=== PATIENT | female | born 1945 | race American Indian/Alaskan Native ===

== ENCOUNTER 2017-12-18 16:34 | Emergency (ER) | payer MEDICAID, OTHER ==
[2017-12-18 16:50] VITALS: RESP 20; O2SAT 100
[2017-12-18 17:23] LABS: URINE BACTERIA RARE (<OCC); URINE BILIRUBIN NEGATIVE (NEGATIVE); URINE BLOOD 2+ (NEGATIVE); URINE CLARITY Hazy (Clear); URINE COLOR Yellow (YELLOW); URINE GLUCOSE (UA) 2+ mg/dL (Normal); URINE LEUKOCYTE ESTERASE 3+ Leu/uL (Negative); URINE PROTEIN 2+ mg/dL (NEGATIVE); URINE UROBILINOGEN NORMAL mg/dL (0.2-1.0)
--- NOTE | 2017-12-18 17:40 | C.PDOC ---
History Of Present Illness 72 y/o female presents to ED for evaluation of UTI symptoms for 2 weeks. Patient admits to being seen at [facility] and started on Macrobid 1 week ago with no improvement. At ED patient complaints of urinary frequency and urinary discomfort. Otherwise, pt denies fever, chills, headache, dizziness, CP, SOB, dyspnea, palpitation, abd. pain, V/D, back pain, hematuria, vaginal discharge or any other complaints at this time. Ambulate to Ed for evaluation, not in any apparent distress. Time Seen by Provider: 12/18/17 16:55 Chief Complaint (Nursing): Female Genitourinary History Per: Patient History/Exam Limitations: no limitations Onset/Duration Of Symptoms: Days Current Symptoms Are (Timing): Still Present Associated Symptoms: Urinary Symptoms Past Medical History Reviewed: Historical Data, Nursing Documentation, Vital Signs Vital Signs: Last Vital Signs Temp 98.5 F 12/18/17 17:50 Pulse 88 12/18/17 17:50 Resp 20 12/18/17 17:50 BP 140/81 12/18/17 17:50 Pulse Ox 100 12/18/17 17:52 - Medical History PMH: HTN Surgical History: No Surg Hx Family History: States: No Known Family Hx - Social History Hx Alcohol Use: No Hx Substance Use: No - Immunization History Hx Tetanus Toxoid Vaccination: No Hx Influenza Vaccination: No Hx Pneumococcal Vaccination: No Review Of Systems Constitutional: Negative for: Fever, Chills Genitourinary: Positive for: Dysuria, Frequency. Negative for: Hematuria, Vaginal Discharge Musculoskeletal: Negative for: Back Pain Skin: Negative for: Rash Physical Exam - Physical Exam Appears: Well, Non-toxic, No Acute Distress Skin: Normal Color, Warm, Dry, No Rash Head: Normacephalic Eye(s): bilateral: PERRL Nose: No Flaring, No Discharge Oral Mucosa: Moist, No Drooling Throat: No Erythema, No Drooling Neck: Trachea Midline, Supple Cardiovascular: Rhythm Regular, No Murmur, No JVD Respiratory: No Decreased Breath Sounds, No Accessory Muscle Use, No Stridor, No Wheezing Gastrointestinal/Abdominal: Soft, Tenderness (mild suprapubic tenderness), No Distention, No Guarding, No Rebound Back: No CVA Tenderness Extremity: Normal ROM, No Pedal Edema, No Deformity, No Swelling Neurological/Psych: Oriented x3, Normal Speech, Normal Motor, Normal Sensation, Normal Reflexes ED Course And Treatment - Laboratory Results Lab Interpretation: No Changes Compared To Prior Results O2 Sat by Pulse Oximetry: 100 (RA) Pulse Ox Interpretation: Normal Progress Note: On re-eval, pt is afebrile, hemodynamicaly stable. Non-toxic. Tolerate Po well in ED. ENT: no acute findings. Neck: Supple, (-) JVD, (-) carotid bruits B/L. Lungs: CTA B/L, BS equal B/L. CVS: (+)S1S2, reg. Abd: soft, NT/ND, (-) guarding, (-) rebound. back: (-) CVA tenderness. UA results review and c/w UTI. Ucx- pending. Pt advised on course of ds, will switch abx now. ref. to f/u with PMD in 2-3 days for re-eval. return if any new changes. Disposition Counseled Patient/Family Regarding: Studies Performed, Diagnosis, Need For Followup, Rx Given - Disposition Referrals: [facility] [Outside] Disposition: HOME/ ROUTINE Disposition Time: 17:36 Condition: STABLE Additional Instructions: Encourage fluids Change antibiotic, stop Macrobid and switch to Ciprofloxacin Return to ED in 2-3 days if no improvement , urine culture will be available for review. return to ED at any time if any worsening or new changes. 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 - Scribe Statement The provider has reviewed the documentation as recorded by the Lisa Jamison All medical record entries made by the Lisa were at my direction and personally dictated by me. I have reviewed the chart and agree that the record accurately reflects my personal performance of the history, physical exam, medical decision making, and the department course for this patient. I have also personally directed, reviewed, and agree with the discharge instructions and disposition.
[2017-12-18 17:51] VITALS: BP 140/81; PULSE 88; TEMP 98.5
== END 2017-12-18 17:51 | disposition home or self-care (01) ==
LOC: C.ER 16:34
DX: N39.0 Urinary tract infection, site not specified (principal); I10 Essential (primary) hypertension

== ENCOUNTER 2018-02-27 08:37 | Inpatient (IN) | payer MEDICARE, OTHER ==
[2018-02-27 08:41] VITALS: BMI 29.2
[2018-02-27] MEDS ORDERED: Vancomycin 1 GM 1 GM/250 ML BAG IV STA (09:28)
--- NOTE | 2018-02-27 10:09 | RAD ---
Date of service: 02/27/2018 PROCEDURE: CHEST RADIOGRAPH, 1 VIEW HISTORY: left leg swelling/pain COMPARISON: None available. FINDINGS: LUNGS: The lungs are well inflated and clear. PLEURA: No pneumothorax or pleural fluid seen. CARDIOVASCULAR: Normal. OSSEOUS STRUCTURES: No significant abnormalities. VISUALIZED UPPER ABDOMEN: Normal. OTHER FINDINGS: None. IMPRESSION: No active pulmonary disease.
[2018-02-27 10:11] LABS: BASO % 0.6 % (0.0-2.0); EOS % 0.9 % (0.0-4.0); HEMOGLOBIN 9.5 g/dL (11.0-16.0); LYMPH # 0.9 K/uL (1.0-4.3); LYMPH % 16.3 % (20.0-40.0); MEAN CORPUSCULAR HEMOGLOBIN 26.1 pg (27.0-31.0); MEAN CORPUSCULAR HGB CONC 33.1 g/dL (33.0-37.0); MEAN PLATELET VOLUME 7.8 fL (7.2-11.7); MONO # 0.7 K/uL (0.0-0.8); MONO % 12.1 % (0.0-10.0); NEUT # 3.8 K/uL (1.8-7.0); NEUT % 70.1 % (50.0-75.0); RBC 3.63 Mil/uL (3.80-5.20); RED CELL DISTRIBUTION WIDTH 15.5 % (11.5-14.5); WHITE BLOOD COUNT 5.5 K/uL (4.8-10.8)
--- NOTE | 2018-02-27 10:13 | RAD ---
Date of service: 02/27/2018 PROCEDURE: Radiographs of the left tibia and fibula. HISTORY: left leg swelling/erythema COMPARISON: None available. TECHNIQUE: Frontal and lateral views obtained. FINDINGS: BONES: Bone alignment and mineralization are normal. There is no acute fracture or bone destruction. There is a prominent plantar calcaneal spur. JOINT SPACES: Unremarkable. OTHER FINDINGS: There is diffuse subcutaneous edema. IMPRESSION: No acute fracture or bone destruction. Diffuse subcutaneous edema.
[2018-02-27 10:18] LABS: INR 1.3; PROTHROMBIN TIME 13.7 SECONDS (9.7-12.2)
[2018-02-27 10:24] LABS: ALBUMIN 3.8 g/dL (3.5-5.0); ALT/SGPT 25 U/L (9-52); AST/SGOT 18 U/L (14-36); BLOOD UREA NITROGEN 8 mg/dL (7-17); CALCIUM 10.2 mg/dl (8.6-10.4); GFR AFRICAN-AMERICAN > 60; GFR NON-AFRICAN AMERICAN > 60
[2018-02-27] MEDS ORDERED: Vancomycin 1 gm/NS 200 ml 1 GM/200 ML BAG IVPB STA (10:27)
[2018-02-27 10:55] LABS: SQUAMOUS EPITHIAL < 1 /hpf (0-5); URINE BACTERIA RARE (<OCC); URINE BILIRUBIN NEGATIVE (NEGATIVE); URINE BLOOD NEGATIVE (NEGATIVE); URINE CLARITY Clear (Clear); URINE COLOR Yellow (YELLOW); URINE GLUCOSE (UA) NORMAL (Normal); URINE PROTEIN NEGATIVE (NEGATIVE); URINE UROBILINOGEN NORMAL mg/dL (0.2-1.0)
[2018-02-27 11:09] LABS: URINE LEUKOCYTE ESTERASE 1+ Leu/uL (Negative)
--- NOTE | 2018-02-27 12:14 | C.PDOC ---
History Of Present Illness 72yo female, comes to ER with complaints of pain and swelling to her left lower extremity x 2 days. She states she "hit" her leg several days ago and now developed several blisters on her posterior leg. She otherwise denies any fever , chills, chest pain or shortness of breath. Patient offers no additional complaints. Time Seen by Provider: 02/27/18 08:55 Chief Complaint (Nursing): Lower Extremity Problem/Injury History Per: Patient History/Exam Limitations: no limitations Onset/Duration Of Symptoms: Days Current Symptoms Are (Timing): Still Present Past Medical History Reviewed: Historical Data, Nursing Documentation, Vital Signs Vital Signs: Last Vital Signs Temp 99.0 F 02/27/18 12:47 Pulse 100 H 02/27/18 12:47 Resp 18 02/27/18 12:47 BP 138/81 02/27/18 12:47 Pulse Ox 100 02/27/18 12:47 - Medical History PMH: HTN Surgical History: No Surg Hx Family History: States: No Known Family Hx - Social History Hx Alcohol Use: No Hx Substance Use: No - Immunization History Hx Tetanus Toxoid Vaccination: No Hx Influenza Vaccination: No Hx Pneumococcal Vaccination: No Review Of Systems Except As Marked, All Systems Reviewed And Found Negative. Constitutional: Negative for: Fever, Chills Cardiovascular: Negative for: Chest Pain Respiratory: Negative for: Shortness of Breath Gastrointestinal: Negative for: Vomiting, Abdominal Pain Musculoskeletal: Positive for: Leg Pain (left leg with pain and swelling) Physical Exam - Physical Exam Appears: Non-toxic, Other (undomiciled) Skin: Warm, Dry Head: Atraumatic, Normacephalic Eye(s): bilateral: Normal Inspection, EOMI Neck: Normal ROM, Supple Chest: Symmetrical Cardiovascular: Rhythm Regular Respiratory: Normal Breath Sounds Gastrointestinal/Abdominal: Normal Exam, Soft, No Tenderness Back: Normal Inspection Extremity: Pedal Edema (left lower extremity), Calf Tenderness (left), Swelling (swelling, erythema and warmth noted to left lower extremities. ), Other ( multiple white bullae 3 cm in size noted to posterior left leg; no drainage noted. There is extensive callous on heels. ) Pulses: Left Dorsalis Pedis: Normal, Right Dorsalis Pedis: Normal Neurological/Psych: Oriented x3, Normal Speech, Normal Cognition, Normal Motor, Normal Sensation Gait: Steady ED Course And Treatment - Laboratory Results Result Diagrams: 02/27/18 10:05 02/27/18 10:05 O2 Sat by Pulse Oximetry: 100 (RA) Pulse Ox Interpretation: Normal Progress Note: Labs, US Duplex and XR left tib/fib ordered. US results reviewed , patient does not have a DVT in her left lower extremity. Patient started on IV antibiotics. Case discussed with Dr. Mahoney and patient to be admitted under his service. 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 - Scribe Statement The provider has reviewed the documentation as recorded by the Lisa Ramirez Provider Attestation: All medical record entries made by the Lisa were at my direction and personally dictated by me. I have reviewed the chart and agree that the record accurately reflects my personal performance of the history, physical exam, medical decision making, and the department course for this patient. I have also personally directed, reviewed, and agree with the discharge instructions and disposition. Decision To Admit - Pt Status Changed To: Hospital Disposition Of: Inpatient - Admit Certification Admit to Inpatient:: After my assessment, the patient will require hospitalization for at least two midnights. This is because of the severity of symptoms shown, intensity of services needed, and/or the medical risk in this patient being treated as an outpatient. - InPatient: Physician Admission Certification: I certify that this patient requires 2 or more midnights of care for the following reason:: Patient with leg cellulitis will need IV antibiotics and wound care for more than 2 days. - . Bed Request Type: Regular Admitting Physician: Piyush Mahoney Patient Diagnosis: Cellulitis of leg
--- NOTE | 2018-02-27 13:30 | VASCLAB ---
Date of service: 02/27/2018 PROCEDURE: Left Lower Extremity Venous Duplex Exam. HISTORY: Left leg swelling, Pain PRIORS: None. TECHNIQUE: Left common femoral, femoral, popliteal and posterior tibial, peroneal and great saphenous veins were evaluated. Flow was assessed with color Doppler, compressibility, assessment of phasic flow and augmentation response. Report prepared by [address]UN[address] FINDINGS: LEFT: 1. Common Femoral Vein: 1.1. Compressibility - Fully compressible: Thrombus - None : Flow - Phasic: Augmentation -Normal: Reflux - None. 2. Femoral Vein: 2.1. Compressibility - Fully compressible: Thrombus - None: Flow - Phasic: Augmentation -Normal: Reflux - None. 3. Popliteal Vein: 3.1. Compressibility - Fully compressible: Thrombus - None: Flow - Phasic: Augmentation -Normal: Reflux - None. 4. Posterior Tibial Vein: 4.1. Compressibility - Fully compressible: Thrombus - None: Flow - Phasic: Augmentation -Normal: Reflux - None. 5. Peroneal Vein: 5.1. Compressibility - Fully compressible: Thrombus - None: Flow - Phasic: Augmentation -Normal: Reflux - None. 6. Great Saphenous Vein: 6.1. Compressibility - Fully compressible: Thrombus - None: Flow - Phasic: Augmentation - Normal: Reflux - None. OTHER FINDINGS: A mass with minimal vascularity was seen in the left groin, measuring 1.96 x 3.72 c.m., possibly an enlarged lymph node. IMPRESSION: No evidence of deep or superficial vein thrombosis of the left lower extremity with excellent venous flow. Normal valve function noted of the left side. Normal venous flow noted in the right common femoral vein.
--- NOTE | 2018-02-27 13:56 | CP.PCM.HP ---
History of Present Illness - History of Present Illness History of Present Illness: Nya Mack is a 72 yo homeless female with a PMH of HTN who presents with a 2 day history of left leg swelling and new onset abscess today post trauma. The patient states that she lives in a homeless half-way and walks outside for msot of the day while carrying all of her belongings. She believes she hit her leg while pushing her cart, but she cannot recall particularly what she hit it on. She states she noticed redness on her left leg some time last week. The swelling began 2 days ago. She then noticed a blistering area with pus today and decided to come into the hospital. She states there is minimal pain but describes a tight feeling. She also notes associated pruritis to the area. She denies fevers and chills. She is sleeping and eating well. She denies nausea, vomiting, constipation, and diarrhea. PMH: HTN dx in 11/2017 Surgical hx: none Meds: Norvasc 10 mg daily All: NKA FH: father ()- colon CA mother ()- uterine cancer SH: homeless- spends time in half-way denies tobacco, alcohol, and illicit drug use never , no children PMD: none Present on Admission - Present on Admission Any Indicators Present on Admission: No History of DVT/PE: No History of Uncontrolled Diabetes: No Urinary Catheter: No Decubitus Ulcer Present: No Review of Systems - Constitutional Constitutional: absent: Chills, Fever, Headache, Lethargy - EENT Eyes: absent: Blurred Vision, Change in Vision - Cardiovascular Cardiovascular: absent: Chest Pain, Diaphoresis, Palpitations - Respiratory Respiratory: absent: Cough, Dyspnea - Gastrointestinal Gastrointestinal: absent: Abdominal Pain, Constipation, Diarrhea, Nausea, Vomiting - Genitourinary Genitourinary: absent: Dysuria, Hematuria, Urinary Frequency - Reproductive: Female Reproductive:Female: Post Menopausal - Menstruation Menstruation: Post Menopausal - Musculoskeletal Musculoskeletal: absent: Back Pain, Limited Range of Motion, Numbness, Tingling - Integumentary Integumentary: As Per HPI - Neurological Neurological: absent: Focal Weakness, Headaches, Paresthesias, Syncope, Tingling , Weakness - Psychiatric Psychiatric: absent: Anxiety, Depression - Endocrine Endocrine: absent: Palpitations, Polydipsia, Polyuria - Hematologic/Lymphatic Hematologic: absent: Easy Bleeding, Easy Bruising Past Patient History - Infectious Disease Hx of Infectious Diseases: None - Tetanus Immunizations Tetanus Immunization: >10 years Ago - Past Medical History & Family History Past Medical History?: Yes - Past Social History Smoking Status: Never Smoked Chewing Tobacco Use: No Cigar Use: No Occupation: unemployed Alcohol: None Drugs: Denies Home Situation {Lives}: Homeless - CARDIAC Hx Hypertension: Yes - MUSCULOSKELETAL/RHEUMATOLOGICAL Hx Falls: No - PSYCHIATRIC Hx Substance Use: No - SURGICAL HISTORY Hx Surgeries: No - ANESTHESIA Hx Anesthesia: No Hx Anesthesia Reactions: No Meds Allergies/Adverse Reactions: Allergies Allergy/AdvReac Type Severity Reaction Status Date / Time No Known Allergies Allergy Verified 02/27/18 08:40 Physical Exam - Constitutional Appears: Well, Unkempt - Head Exam Head Exam: ATRAUMATIC, NORMAL INSPECTION, NORMOCEPHALIC - Eye Exam Eye Exam: EOMI, Normal appearance, PERRL - ENT Exam ENT Exam: Mucous Membranes Moist, Normal Exam Additional comments: poor dentition - Neck Exam Neck exam: Positive for: Full Rom, Normal Inspection. Negative for: Lymphadenopathy - Respiratory Exam Respiratory Exam: Clear to Auscultation Bilateral, NORMAL BREATHING PATTERN - Cardiovascular Exam Cardiovascular Exam: REGULAR RHYTHM - GI/Abdominal Exam GI & Abdominal Exam: Normal Bowel Sounds, Soft - Rectal Exam Rectal Exam: Deferred - Extremities Exam Additional comments: left ankle 1x1 cm abscess with purulent drainage, ~15 cm area of surrounding erythema, edema extends up to mid calf, pulses present - Back Exam Back exam: NORMAL INSPECTION - Neurological Exam Neurological exam: Alert, Oriented x3 - Psychiatric Exam Psychiatric exam: Normal Affect, Normal Mood - Skin Skin Exam: Dry, Intact, Normal Color, Warm Results - Vital Signs Recent Vital Signs: Last Vital Signs Temp 99.0 F 02/27/18 12:47 Pulse 100 H 02/27/18 12:47 Resp 18 02/27/18 12:47 BP 138/81 02/27/18 12:47 Pulse Ox 100 02/27/18 13:12 Temp Pulse Resp BP Pulse Ox 99.1 F 93 H 20 146/75 100 02/27/18 16:39 02/27/18 16:39 02/27/18 16:39 02/27/18 16:39 02/27/18 18:03 - Labs Result Diagrams: 02/27/18 10:05 02/27/18 10:05 Labs: Laboratory Results - last 24 hr 02/27/18 02/27/18 02/27/18 10:05 10:05 10:05 WBC 5.5 RBC 3.63 L Hgb 9.5 L Hct 28.7 L MCV 79.0 L MCH 26.1 L MCHC 33.1 RDW 15.5 H Plt Count 302 MPV 7.8 Neut % (Auto) 70.1 Lymph % (Auto) 16.3 L [place] % (Auto) 12.1 H Eos % (Auto) 0.9 Baso % (Auto) 0.6 Neut # (Auto) 3.8 Lymph # (Auto) 0.9 L [place] # (Auto) 0.7 Eos # (Auto) 0.0 Baso # (Auto) 0.0 PT 13.7 H INR 1.3 APTT 28 Sodium 140 Potassium 3.9 Chloride 102 Carbon Dioxide 28 Anion Gap 14 BUN 8 Creatinine 0.7 Est GFR ( Amer) > 60 Est GFR (Non-Af Amer) > 60 Random Glucose 109 H Calcium 10.2 Total Bilirubin 0.4 AST 18 ALT 25 Alkaline Phosphatase 99 Total Protein 7.7 Albumin 3.8 Globulin 3.9 Albumin/Globulin Ratio 1.0 Urine Color Urine Clarity Urine pH Ur Specific [place] Urine Protein Urine Glucose (UA) Urine Ketones Urine Blood Urine Nitrate Urine Bilirubin Urine Urobilinogen Ur Leukocyte Esterase Urine WBC (Auto) Urine RBC (Auto) Ur Squamous Epith Cells Urine Bacteria 02/27/18 10:13 WBC RBC Hgb Hct MCV MCH MCHC RDW Plt Count MPV Neut % (Auto) Lymph % (Auto) [place] % (Auto) Eos % (Auto) Baso % (Auto) Neut # (Auto) Lymph # (Auto) [place] # (Auto) Eos # (Auto) Baso # (Auto) PT INR APTT Sodium Potassium Chloride Carbon Dioxide Anion Gap BUN Creatinine Est GFR ( Amer) Est GFR (Non-Af Amer) Random Glucose Calcium Total Bilirubin AST ALT Alkaline Phosphatase Total Protein Albumin Globulin Albumin/Globulin Ratio Urine Color Yellow Urine Clarity Clear Urine pH 6.0 Ur Specific [place] 1.010 Urine Protein Negative Urine Glucose (UA) Normal Urine Ketones Negative Urine Blood Negative Urine Nitrate Negative Urine Bilirubin Negative Urine Urobilinogen Normal Ur Leukocyte Esterase 1+ H Urine WBC (Auto) 4 Urine RBC (Auto) 1 Ur Squamous Epith Cells < 1 Urine Bacteria Rare Assessment & Plan - Assessment and Plan (Free Text) Assessment: Patient is a 72 yo female with a PMH of HTN who presents with cellulitis and abscess post trauma. Patient reports hitting her leg last week and having a 2 day history of swelling. She then noticed the abscess and came to the ED. Plan: Cellulitis and abscess 2/2 trauma, acute - WBC wnl 5.5 - Afebrile - Blood Cx pending - Wound Cx pending - Wound care consult - Podiatry consult - Ancef 1g IV q8hrs - Vancomycin 1g IV q12 hrs - 1g of vancomycin received in ED - Tdap Essential HTN, chronic, stable - Norvasc 10 mg daily - Vitals q4hrs IVF: NS @ 75 mL/hr VTE ppx: heparin 5000u SQ q8 hrs GI ppx: none Diet: regular Code status: full code Dispo: Patient is homeless and may need IV abx upon discharge. Case management was consulted.
[2018-02-27 14:05] VITALS: RESP 20
[2018-02-27] MEDS ORDERED: Sodium Chloride 0.9% 1,000 ML IV SCH (15:00)
[2018-02-27] MEDS: ceFAZolin IV 1 gm in Dextrose 1 GM/50 ML BAG IVPB SCH (15:30)
[2018-02-27] MEDS ORDERED: Tdap Vaccine 0.5 ml Vial (10-64 yrs) IM ONE (16:00)
[2018-02-27] MEDS: Vancomycin 1 gm/NS 200 ml 1 GM/200 ML BAG IVPB SCH (16:05)
[2018-02-27] MEDS: Sodium Chloride 0.9% 1,000 ML IV SCH (22:30)
[2018-02-28] MEDS: ceFAZolin IV 1 gm in Dextrose 1 GM/50 ML BAG IVPB SCH ×5 (00:06→23:45)
[2018-02-28] MEDS: Vancomycin 1 gm/NS 200 ml 1 GM/200 ML BAG IVPB SCH ×2 (03:35→16:47)
[2018-02-28 07:23] LABS: BASO % 0.2 % (0.0-2.0); EOS # 0.1 K/uL (0.0-0.7); EOS % 1.8 % (0.0-4.0); HEMOGLOBIN 8.6 g/dL (11.0-16.0); LYMPH # 1.2 K/uL (1.0-4.3); LYMPH % 35.8 % (20.0-40.0); MEAN CELL VOLUME 79.3 fL (81.0-99.0); MEAN CORPUSCULAR HEMOGLOBIN 26.7 pg (27.0-31.0); MEAN CORPUSCULAR HGB CONC 33.7 g/dL (33.0-37.0); MEAN PLATELET VOLUME 7.5 fL (7.2-11.7); MONO # 0.5 K/uL (0.0-0.8); MONO % 15.4 % (0.0-10.0); NEUT # 1.6 K/uL (1.8-7.0); NEUT % 46.8 % (50.0-75.0); NRBC % 0.1 % (0.0-2.0); RBC 3.23 Mil/uL (3.80-5.20); RED CELL DISTRIBUTION WIDTH 15.8 % (11.5-14.5); WHITE BLOOD COUNT 3.3 K/uL (4.8-10.8)
[2018-02-28 07:43] LABS: ALB/GLOB RATIO 0.9 (1.0-2.1); ALBUMIN 2.9 g/dL (3.5-5.0); ALT/SGPT 19 U/L (9-52); AST/SGOT 20 U/L (14-36); BLOOD UREA NITROGEN 7 mg/dL (7-17); CALCIUM 9.6 mg/dl (8.6-10.4); GFR AFRICAN-AMERICAN > 60; GFR NON-AFRICAN AMERICAN > 60
[2018-02-28] MEDS: Sodium Chloride 0.9% 1,000 ML IV SCH (12:29)
--- NOTE | 2018-02-28 12:35 | CP.PCM.CON ---
History of Present Illness - History of Present Illness History of Present Illness: Podiatry Consult Note - Dr. Hawkins 72 y/o homeless female with PMHX of HTN seen at bedside today after consultation for evaluation and management of left ankle blister. Pt states she is constantly out walking and pushing a cart and thinks she may have banged the ankle against her cart. States she resides at the [facility] when she can get a bed. Denies any history of diabetes. Denies any prior issues with her legs or feet. States she noticed the leg and foot swelling over the last two days and this prompted her to come to the hospital. Denies F/C/N/V/CP/ SOB. Denies numbness, tingling or burning PSHx: denies ALL: denies SocHx: lives at [facility]. Denies EtOH, cigarette or illicit drug use Review of Systems - Review of Systems All systems: reviewed and no additional remarkable complaints except (per HPI) Past Patient History - Infectious Disease Hx of Infectious Diseases: None - Tetanus Immunizations Tetanus Immunization: >10 years Ago - Past Medical History & Family History Past Medical History?: Yes - Past Social History Smoking Status: Never Smoked Chewing Tobacco Use: No Cigar Use: No Occupation: unemployed Alcohol: None Drugs: Denies Home Situation {Lives}: Homeless - CARDIAC Hx Hypertension: Yes - MUSCULOSKELETAL/RHEUMATOLOGICAL Hx Falls: No - PSYCHIATRIC Hx Substance Use: No - SURGICAL HISTORY Hx Surgeries: No - ANESTHESIA Hx Anesthesia: No Hx Anesthesia Reactions: No Meds Allergies/Adverse Reactions: Allergies Allergy/AdvReac Type Severity Reaction Status Date / Time No Known Allergies Allergy Verified 02/27/18 08:40 - Medications Medications: Current Medications Acetaminophen (Tylenol 325mg Tab) 650 mg PO Q6 PRN PRN Reason: Pain, Mild (1-3) Amlodipine Besylate (Norvasc) 10 mg PO DAILY [facility] Last Admin: 02/28/18 10:12 Dose: 10 mg Heparin Sodium (Porcine) (Heparin) 5,000 units SC Q8 MISSY Last Admin: 02/28/18 06:08 Dose: 5,000 units Cefazolin Sodium/Dextrose (Ancef Iv 1 Gm Duplex) 1 gm in 50 mls @ 100 mls/hr IVPB Q8H MISSY PRN Reason: Protocol Last Admin: 02/28/18 06:41 Dose: 100 mls/hr Vancomycin/Sodium Chloride (Vancomycin 1 Gm/Ns 200 Ml) 1 gm in 200 mls @ 166.6 mls/hr IVPB Q12H [facility] PRN Reason: Protocol Stop: 03/04/18 16:31 Last Admin: 02/28/18 03:35 Dose: 166.6 mls/hr Sodium Chloride (Sodium Chloride 0.9%) 1,000 mls @ 75 mls/hr IV .[id number] [facility] Last Admin: 02/28/18 12:29 Dose: 75 mls/hr Pneumococcal Polyvalent Vaccine (Pneumovax 23 Vaccine) 0.5 ml IM .ONCE ONE Stop: 03/02/18 10:01 Physical Exam - Constitutional Appears: Well, Non-toxic, No Acute Distress - Extremities Exam Additional comments: Lower extremity focused exam: Vasc: DP/PT pulses palpable 2/4. Temperature gradient warm to cool. CFT < 3 sec to all digits. Perimalleolar edema noted to LLE, non-pitting. Derm: Circular ulceration approx 2.1cm diameter and 0.2cm in depth noted to left posteromedial ankle with 85% granular and 15% fibrotic wound base. [place] wound negative for erythema or maceration. No malodor, no fluctuance, no purulence or active drainage. Thickened, dystrophic elongated toenails x 10 Neuro: Protective sensation grossly intact Ortho: No gross biomechanical abnormalities. Mild tenderness to palpation of thickened toenails B/L. Mild tenderness to palpation of ulceration site and chalino -wound edema Results - Vital Signs Recent Vital Signs: Last Vital Signs Temp 98.5 F 02/28/18 07:33 Pulse 81 02/28/18 07:33 Resp 20 02/28/18 07:33 BP 135/73 02/28/18 07:33 Pulse Ox 95 02/28/18 07:33 - Labs Result Diagrams: 02/28/18 07:09 02/28/18 07:09 Labs: Laboratory Results - last 24 hr 02/28/18 02/28/18 07:09 07:09 WBC 3.3 L RBC 3.23 L Hgb 8.6 L Hct 25.6 L MCV 79.3 L MCH 26.7 L MCHC 33.7 RDW 15.8 H Plt Count 263 MPV 7.5 Neut % (Auto) 46.8 L Lymph % (Auto) 35.8 [place] % (Auto) 15.4 H Eos % (Auto) 1.8 Baso % (Auto) 0.2 Neut # (Auto) 1.6 L Lymph # (Auto) 1.2 [place] # (Auto) 0.5 Eos # (Auto) 0.1 Baso # (Auto) 0.0 Sodium 140 Potassium 3.8 Chloride 107 Carbon Dioxide 26 Anion Gap 11 BUN 7 Creatinine 0.7 Est GFR ( Amer) > 60 Est GFR (Non-Af Amer) > 60 Random Glucose 93 Calcium 9.6 Total Bilirubin 0.3 AST 20 ALT 19 Alkaline Phosphatase 73 Total Protein 6.2 L Albumin 2.9 L D Globulin 3.4 Albumin/Globulin Ratio 0.9 L Assessment & Plan - Assessment and Plan (Free Text) Assessment: 72 y/o female with 1) left posteromedial ankle ulcer secondary to lanced boil/ trauma and 2) panful thickened dystrophic toenails Plan: Pt seen and evaluated at bedside Discussed with attending Dr. Hawkins Tib/fib x-rays negative for any acute osseous findings Wound cleaned with saline and dressed with xeroform, ABD, DSD Pt advised to keep dressing clean, dry and intact Continue IV abx treatment Toenails debrided in aseptic fashion with sterile nippers x 10 Pt tolerated procedure without incident Will continue to monitor pt while in house Thank you for consulting our service
[2018-02-28 16:13] LABS: BARBITURATES, UR NEGATIVE (NEGATIVE); BENZODIAZEPINES, UR NEGATIVE (NEGATIVE); OPIATES, UR NEGATIVE (NEGATIVE); PHENCYCLIDINE, UR NEGATIVE (NEGATIVE)
--- NOTE | 2018-02-28 17:49 | CP.PCM.PN ---
Subjective - Date & Time of Evaluation Date of Evaluation: 02/28/18 Time of Evaluation: 09:00 - Subjective Subjective: PGY-1 Faiza Mcpherson D.O. Medicine progress note for Dr. Nye service: Patient was seen and examined this morning. She is lying comfortably in bed. She states she is feeling well and has minimal pain. She says she really only feels pain upon standing. She reports she is doing leg exercises while in bed. The erythema and swelling has decreased in her left lower leg. She is eating and sleeping well. She denies fevers or chills. She denies N/V/D/C and urinary symptoms. Objective - Vital Signs/Intake and Output Vital Signs (last 24 hours): Temp Pulse Resp BP Pulse Ox 98.5 F 90 20 147/81 99 02/28/18 16:06 02/28/18 16:06 02/28/18 16:06 02/28/18 16:06 02/28/18 16:06 Intake and Output: 02/28/18 02/28/18 06:59 18:59 Intake Total 2014 800 Balance 2014 800 - Medications Medications: Current Medications Acetaminophen (Tylenol 325mg Tab) 650 mg PO Q6 PRN PRN Reason: Pain, Mild (1-3) Amlodipine Besylate (Norvasc) 10 mg PO DAILY [facility] Last Admin: 02/28/18 10:12 Dose: 10 mg Heparin Sodium (Porcine) (Heparin) 5,000 units SC Q8 [facility] Last Admin: 02/28/18 13:13 Dose: 5,000 units Cefazolin Sodium/Dextrose (Ancef Iv 1 Gm Duplex) 1 gm in 50 mls @ 100 mls/hr IVPB Q8H [facility] PRN Reason: Protocol Last Admin: 02/28/18 06:41 Dose: 100 mls/hr Vancomycin/Sodium Chloride (Vancomycin 1 Gm/Ns 200 Ml) 1 gm in 200 mls @ 166.6 mls/hr IVPB Q12H [facility] PRN Reason: Protocol Stop: 03/04/18 16:31 Last Admin: 02/28/18 16:47 Dose: 166.6 mls/hr Sodium Chloride (Sodium Chloride 0.9%) 1,000 mls @ 75 mls/hr IV .[id number] [facility] Last Admin: 08/03/18 12:29 Dose: 75 mls/hr Pneumococcal Polyvalent Vaccine (Pneumovax 23 Vaccine) 0.5 ml IM .ONCE ONE Stop: 03/02/18 10:01 - Labs Labs: 02/28/18 07:09 02/28/18 07:09 PT 13.7 SECONDS (9.7-12.2) H 02/27/18 10:05 INR 1.3 02/27/18 10:05 APTT 28 SECONDS (21-34) 02/27/18 10:05 Calcium 9.6 mg/dl (8.6-10.4) 02/28/18 07:09 Total Bilirubin 0.3 mg/dL (0.2-1.3) 02/28/18 07:09 AST 20 U/L (14-36) 02/28/18 07:09 ALT 19 U/L (9-52) 02/28/18 07:09 Alkaline Phosphatase 73 U/L (38-126) 02/28/18 07:09 02/27/18 21:32 Gram Stain - Final Ankle - Left Wound Culture - Preliminary Gram Positive Cocci 02/27/18 11:51 Blood Culture - Preliminary Blood NO GROWTH AFTER 24 HOURS - Constitutional Appears: Well, No Acute Distress - Head Exam Head Exam: ATRAUMATIC, NORMAL INSPECTION, NORMOCEPHALIC - Eye Exam Eye Exam: EOMI, Normal appearance - ENT Exam ENT Exam: Mucous Membranes Moist - Neck Exam Neck Exam: Normal Inspection - Respiratory Exam Respiratory Exam: Clear to Ausculation Bilateral, NORMAL BREATHING PATTERN - Cardiovascular Exam Cardiovascular Exam: REGULAR RHYTHM - GI/Abdominal Exam GI & Abdominal Exam: Soft - Rectal Exam Rectal Exam: Deferred - Extremities Exam Extremities Exam: Full ROM Additional comments: left ankle 1x1 cm abscess with purulent drainage, ~15 cm area of surrounding erythema, edema extends up to mid calf, pulses present - Back Exam Back Exam: NORMAL INSPECTION - Neurological Exam Neurological Exam: Alert, Awake, Oriented x3 - Psychiatric Exam Psychiatric exam: Normal Affect, Normal Mood - Skin Skin Exam: Dry, Intact, Normal Color, Warm Additional comments: patient has new lesion on her right fourth digit at the PIP joint- it has serosanguinous drainage - Additional Findings Additional findings: 3 small palpable femoral LNs in the left leg- nontender, all < 1cm Assessment and Plan - Assessment and Plan (Free Text) Assessment: Patient is a 72 yo female with a PMH of HTN who presents with cellulitis and abscess post trauma. Patient reports hitting her leg last week and having a 2 day history of swelling. She then noticed the abscess and came to the ED. Plan: Cellulitis and abscess 2/2 trauma, acute - WBC wnl 3.3 - Afebrile - UDS negative - Blood Cx negative >24 hrs - Wound Cx gram positive cocci - Wound care nurse consult - Podiatry consult (Shruthi) - Ancef 1g IV q8hrs - Vancomycin 1g IV q12 hrs- check trough tomorrow - 1g of vancomycin received in ED - Tdap given - Venous Doppler of LLE negative for DVT - Left femoral lymphadenopathy- needs to be followed up with u/s after discharge Essential HTN, chronic, stable - Norvasc 10 mg daily - Vitals q4hrs IVF: NS @ 75 mL/hr VTE ppx: heparin 5000u SQ q8 hrs GI ppx: none Diet: heart healthy Code status: full code Dispo: Patient is homeless and may need IV abx upon discharge. Case management was consulted and patient has a spot pending [facility] in [place] if necessary. Social work was also consulted.
[2018-03-01] MEDS: Sodium Chloride 0.9% 1,000 ML IV SCH ×3 (00:56→14:34)
[2018-03-01] MEDS: Vancomycin 1 gm/NS 200 ml 1 GM/200 ML BAG IVPB SCH ×2 (04:09→17:00)
[2018-03-01] MEDS: ceFAZolin IV 1 gm in Dextrose 1 GM/50 ML BAG IVPB SCH (06:39)
[2018-03-01 07:26] LABS: BASO % 0.6 % (0.0-2.0); EOS # 0.1 K/uL (0.0-0.7); EOS % 3.7 % (0.0-4.0); HEMOGLOBIN 8.8 g/dL (11.0-16.0); LYMPH # 1.2 K/uL (1.0-4.3); LYMPH % 50.4 % (20.0-40.0); MEAN CORPUSCULAR HEMOGLOBIN 26.3 pg (27.0-31.0); MEAN CORPUSCULAR HGB CONC 33.3 g/dL (33.0-37.0); MEAN PLATELET VOLUME 7.8 fL (7.2-11.7); MONO # 0.4 K/uL (0.0-0.8); MONO % 15.9 % (0.0-10.0); NEUT # 0.7 K/uL (1.8-7.0); NEUT % 29.4 % (50.0-75.0); RBC 3.35 Mil/uL (3.80-5.20); RED CELL DISTRIBUTION WIDTH 15.6 % (11.5-14.5); WHITE BLOOD COUNT 2.5 K/uL (4.8-10.8)
[2018-03-01 07:52] LABS: ALB/GLOB RATIO 0.9 (1.0-2.1); ALBUMIN 3.2 g/dL (3.5-5.0); ALT/SGPT 12 U/L (9-52); AST/SGOT 15 U/L (14-36); BLOOD UREA NITROGEN 7 mg/dL (7-17); CALCIUM 9.7 mg/dl (8.6-10.4); GFR AFRICAN-AMERICAN > 60; GFR NON-AFRICAN AMERICAN > 60
--- NOTE | 2018-03-01 08:30 | CP.PCM.PN ---
<Jessica Ladd - Last Filed: 03/01/18 08:31> Subjective - Date & Time of Evaluation Date of Evaluation: 03/01/18 Time of Evaluation: 05:40 - Subjective Subjective: Pt seen and examined at bedside, reports pain is improving. She is tolerating her diet well w/ no accute issues. Pt denies chest pain, SOB, nausea, vomiting , diarrhea, constipation. Objective - Vital Signs/Intake and Output Vital Signs (last 24 hours): Temp Pulse Resp BP Pulse Ox 98.5 F 73 20 145/82 100 03/01/18 07:51 03/01/18 07:51 03/01/18 07:51 03/01/18 07:51 03/01/18 07:51 Intake and Output: 03/01/18 03/01/18 06:59 18:59 Intake Total 1750 Balance 1750 - Medications Medications: Current Medications Acetaminophen (Tylenol 325mg Tab) 650 mg PO Q6 PRN PRN Reason: Pain, Mild (1-3) Amlodipine Besylate (Norvasc) 10 mg PO DAILY [facility] Last Admin: 02/28/18 10:12 Dose: 10 mg Heparin Sodium (Porcine) (Heparin) 5,000 units SC Q8 [facility] Last Admin: 03/01/18 06:14 Dose: 5,000 units Cefazolin Sodium/Dextrose (Ancef Iv 1 Gm Duplex) 1 gm in 50 mls @ 100 mls/hr IVPB Q8H [facility] PRN Reason: Protocol Last Admin: 03/01/18 06:39 Dose: 100 mls/hr Vancomycin/Sodium Chloride (Vancomycin 1 Gm/Ns 200 Ml) 1 gm in 200 mls @ 166.6 mls/hr IVPB Q12H [facility] PRN Reason: Protocol Stop: 03/04/18 16:31 Last Admin: 03/01/18 04:09 Dose: 166.6 mls/hr Sodium Chloride (Sodium Chloride 0.9%) 1,000 mls @ 75 mls/hr IV .[id number] [facility] Last Admin: 03/01/18 06:14 Dose: 75 mls/hr Pneumococcal Polyvalent Vaccine (Pneumovax 23 Vaccine) 0.5 ml IM .ONCE ONE Stop: 03/02/18 10:01 - Labs Labs: 03/01/18 07:20 03/01/18 07:20 PT 13.7 SECONDS (9.7-12.2) H 02/27/18 10:05 INR 1.3 02/27/18 10:05 APTT 28 SECONDS (21-34) 02/27/18 10:05 - Constitutional Appears: Well, Non-toxic, No Acute Distress - Head Exam Head Exam: ATRAUMATIC, NORMAL INSPECTION, NORMOCEPHALIC - Eye Exam Eye Exam: EOMI, Normal appearance - ENT Exam ENT Exam: Mucous Membranes Moist, Normal Exam - Respiratory Exam Respiratory Exam: Clear to Ausculation Bilateral, NORMAL BREATHING PATTERN. absent: Rhonchi, Wheezes - Cardiovascular Exam Cardiovascular Exam: REGULAR RHYTHM, +S1, +S2. absent: Tachycardia - GI/Abdominal Exam GI & Abdominal Exam: Soft, Normal Bowel Sounds. absent: Distended - Extremities Exam Extremities Exam: Normal Capillary Refill, Normal Inspection, Tenderness (left mid russell to ankle abscess deaining purulent serosanguinous drainage). absent: Calf Tenderness - Back Exam Back Exam: NORMAL INSPECTION - Neurological Exam Neurological Exam: Alert, Awake, Oriented x3 Assessment and Plan - Assessment and Plan (Free Text) Assessment: 72 yo F w/ PMHx of HTN admitted w/ left leg cellulitis and abscess 2/2 trauma 1. Cellulitis/abscess 2/2 trauma -LE doppler negative -wound cx gram + cocci, await final report -NS @75 -ancef 1g q8 -vanco 1g q12 -podiatry consult Dr. Hawkins 2. HTN, chronic -Norvasc 10mg -HH diet Ppx -heparin 5000 q8 <Mynor Juarez - Last Filed: 03/01/18 21:21> Objective - Vital Signs/Intake and Output Vital Signs (last 24 hours): Temp Pulse Resp BP Pulse Ox 98.1 F 92 H 20 137/79 100 03/01/18 16:00 03/01/18 16:00 03/01/18 16:00 03/01/18 16:00 03/01/18 16:00 Intake and Output: 03/01/18 03/02/18 18:59 06:59 Intake Total 900 Balance 900 - Medications Medications: Current Medications Acetaminophen (Tylenol 325mg Tab) 650 mg PO Q6 PRN PRN Reason: Pain, Mild (1-3) Amlodipine Besylate (Norvasc) 10 mg PO DAILY [facility] Last Admin: 03/01/18 10:30 Dose: 10 mg Heparin Sodium (Porcine) (Heparin) 5,000 units SC Q8 [facility] Last Admin: 03/01/18 14:34 Dose: 5,000 units Sodium Chloride (Sodium Chloride 0.9%) 1,000 mls @ 75 mls/hr IV .[id number] [facility] Last Admin: 03/01/18 14:34 Dose: Not Given Vancomycin HCl 1,500 mg/ (Sodium Chloride) 250 mls @ 166.6 mls/hr IVPB Q12H [facility] PRN Reason: Protocol Pneumococcal Polyvalent Vaccine (Pneumovax 23 Vaccine) 0.5 ml IM .ONCE ONE Stop: 03/02/18 10:01 Saccharomyces Boulardii (Florastor) 250 mg PO BID [facility] Last Admin: 03/01/18 17:34 Dose: 250 mg - Labs Labs: 03/01/18 07:20 03/01/18 07:20 PT 13.7 SECONDS (9.7-12.2) H 02/27/18 10:05 INR 1.3 02/27/18 10:05 APTT 28 SECONDS (21-34) 02/27/18 10:05 Attending/Attestation - Attestation I have personally seen and examined this patient.: Yes I have fully participated in the care of the patient.: Yes I have reviewed all pertinent clinical information, including history, physical exam and plan: Yes Notes (Text): 03/01/18 21:11 Patient was seen and examined at 10:30 AM 03/01/18 354 A Upon FULL ROS she offers NO complaints Also on Exam: Cardiology: Systolic Ejection Murmur heard on Right Second Intercostal Space Left Leg greater in circumference than the right (Venous Doppler of Left Leg is negative for DVT) Plan: Vancomycin Trough at 4:00 PM, 30 minutes before 4th dose at 4:30 PM today was 10. As goal Vanco Trough should be 15, based upon calculations, Vancomycin total dose in 24 hours should be 3 grams. Therefore Vancomycin changed to 1.5 gm IV Q12H starting at 4:30 AM 03/02/18. F/U Vancomycin Trough on Saturday03/03/18 at 4 PM (30 minutes before next 4th dose) . Wound Culture from Left Leg grew MRSA and that is why Cefazolin was discontinued and patient was continued on Vancomycin. She is on Contact Precautions. Although Blood Culture is negative to date, considering the MRSA and the systolic murmur on exam, 2D Echocardiogram has been ordered and likely will not be completed till Saturday03/03/18. F/U Iron Studies considering the anemia and abnormal RBC indices which point towards Iron Deficiency Anemia. Florastor was added as patient is being treated with IV antibiotics. Discontinue the IVF on morning 03/02/18 as patient is taking in appropriate amount of fluids: she requested it stay on till morning 03/02/18. Mynor Juarez D.O.
--- NOTE | 2018-03-01 10:46 | CP.PCM.PN ---
Subjective - Date & Time of Evaluation Date of Evaluation: 03/01/18 Time of Evaluation: 10:43 - Subjective Subjective: Podiatry progress note for Dr. Hawkins 72 y/o homeless female seen at bedside today for management of left ankle blister. Pt states she is in no pain today. States she resides at the [facility]. States she has been walking to and from the bathroom and around the hallways to try and get some exercise. States she noticed the leg and foot swelling over the last two days and this prompted her to come to the hospital. Denies F/C/N/V/CP/SOB. Denies numbness, tingling or burning Objective - Vital Signs/Intake and Output Vital Signs (last 24 hours): Temp Pulse Resp BP Pulse Ox 98.5 F 73 20 145/82 100 03/01/18 07:51 03/01/18 07:51 03/01/18 07:51 03/01/18 07:51 03/01/18 07:51 Intake and Output: 03/01/18 03/01/18 06:59 18:59 Intake Total 1750 Balance 1750 - Medications Medications: Current Medications Acetaminophen (Tylenol 325mg Tab) 650 mg PO Q6 PRN PRN Reason: Pain, Mild (1-3) Amlodipine Besylate (Norvasc) 10 mg PO DAILY [facility] Last Admin: 02/28/18 10:12 Dose: 10 mg Heparin Sodium (Porcine) (Heparin) 5,000 units SC Q8 [facility] Last Admin: 03/01/18 06:14 Dose: 5,000 units Vancomycin/Sodium Chloride (Vancomycin 1 Gm/Ns 200 Ml) 1 gm in 200 mls @ 166.6 mls/hr IVPB Q12H [facility] PRN Reason: Protocol Stop: 03/04/18 16:31 Last Admin: 03/01/18 04:09 Dose: 166.6 mls/hr Sodium Chloride (Sodium Chloride 0.9%) 1,000 mls @ 75 mls/hr IV .[id number] [facility] Last Admin: 03/01/18 06:14 Dose: 75 mls/hr Pneumococcal Polyvalent Vaccine (Pneumovax 23 Vaccine) 0.5 ml IM .ONCE ONE Stop: 03/02/18 10:01 Saccharomyces Boulardii (Florastor) 250 mg PO BID [facility] - Labs Labs: 03/01/18 07:20 03/01/18 07:20 PT 13.7 SECONDS (9.7-12.2) H 02/27/18 10:05 INR 1.3 02/27/18 10:05 APTT 28 SECONDS (21-34) 02/27/18 10:05 - Constitutional Appears: Well, Non-toxic, No Acute Distress - Head Exam Head Exam: ATRAUMATIC, NORMOCEPHALIC - Extremities Exam Additional comments: Vasc: DP/PT pulses palpable 2/4. Temperature gradient warm to cool. CFT < 3 sec to all digits. Perimalleolar edema noted to LLE, non-pitting. Derm: Circular ulceration approx 2.1cm diameter and 0.2cm in depth noted to left posteromedial ankle with 85% granular and 15% fibrotic wound base. Chalino wound negative for erythema or maceration. No malodor, no fluctuance, no purulence or active drainage. Thickened, dystrophic elongated toenails x 10 Neuro: Protective sensation grossly intact Ortho: No gross biomechanical abnormalities. Mild tenderness to palpation of thickened toenails B/L. Mild tenderness to palpation of ulceration site and chalino -wound edema - Neurological Exam Neurological Exam: Alert, Awake, Oriented x3 - Psychiatric Exam Psychiatric exam: Normal Affect, Normal Mood Assessment and Plan - Assessment and Plan (Free Text) Assessment: 72 y/o female with left posteromedial ankle ulcer secondary to lanced boil/ trauma Plan: Pt seen and evaluated at bedside Discussed with attending Dr. Hawkins Tib/fib x-rays negative for any acute osseous findings Wound cleaned with saline and dressed with betadine, ABD, DSD Pt advised to keep dressing clean, dry and intact Continue IV abx treatment Podiatry will continue to monitor pt while in house
[2018-03-01] MEDS: Saccharomyces Boulardi 250 mg Cap PO SCH (17:34)
--- NOTE | 2018-03-01 18:50 | CP.PCM.CON ---
History of Present Illness - History of Present Illness History of Present Illness: 72 yo homeless female presents with a 2 day history of left leg swelling and new onset abscess The patient states she hit her leg while pushing her cart, but she cannot recall particularly what she hit it on. She states she noticed redness on her left leg some time last week. The swelling began 2 days ago. She then noticed a blistering area with pus today and decided to come into the hospital. referred for ID eval for antibiotic management has a large wound draining pus on medial aspect left ankle with swelling and erythema of lower leg PMH: HTN dx in 11/2017 Surgical hx: none FH: father ()- colon CA mother ()- uterine cancer SH: homeless- denies tobacco, alcohol, and illicit drug use PMD: none Review of Systems - Review of Systems All systems: reviewed and no additional remarkable complaints except - Constitutional Constitutional: As Per HPI - EENT Eyes: absent: As Per HPI, Blind Spots, Blurred Vision, Change in Vision, Decreased Night Vision, Diplopia, Discharge, Dry Eye, Exophthalmos, Floaters, Irritation, Itchy Eyes, Loss of Peripheral Vision, Pain, Photophobia, Requires Corrective Lenses, Sees Flashes, Spots in Vision, Tunnel Vision, Other Visual Disturbances, Loss of Vision, Other Ears: absent: As Per HPI, Decreased Hearing, Ear Discharge, Ear Pain, Tinnitus, Abnormal Hearing, Disequilibrium, Dizziness, Other Nose/Mouth/Throat: absent: As Per HPI, Epistaxis, Nasal Congestion, Nasal Discharge, Nasal Obstruction, Nasal Trauma, Nose Pain, Post Nasal Drip, Sinus Pain, Sinus Pressure, Bleeding Gums, Change in Voice, Dental Pain, Dry Mouth, Dysphagia, Halitosis, Hoarsness, Lip Swelling, Mouth Lesions, Mouth Pain, Odynophagia, Sore Throat, Throat Swelling, Tongue Swelling, Facial Pain, Neck Pain, Neck Mass, Other - Breasts Breasts: absent: As Per HPI, Change in Shape, Mass, Pain, Nipple Discharge, Nipple Inversion, Skin Changes, Swelling, Other - Cardiovascular Cardiovascular: absent: As Per HPI, Acrocyanosis, Chest Pain, Chest Pain at Rest , Chest Pain with Activity, Claudication, Diaphoresis, Dyspnea, Dyspnea on Exertion, Edema, Irregular Heart Rhythm, Pain Radiating to Arm/Neck/Jaw, Leg Edema, Leg Ulcers, Lightheadedness, Orthopnea, Palpitations, Paroxysmal Nocturnal Dyspnea, Pedal Edema, Radiating Pain, Rapid Heart Rate, Slow Heart Rate, Syncope, Other - Respiratory Respiratory: absent: As Per HPI, Cough, Dyspnea, Hemoptysis, Dyspnea on Exertion , Wheezing, Snoring, Stridor, Pain on Inspiration, Chest Congestion, Excessive Mucous Production, Change in Mucous Color, Pain with Coughing, Other - Gastrointestinal Gastrointestinal: absent: As Per HPI, Abdominal Pain, Belching, Bloating, Change in Bowel Habits, Change in Stool Character, Coffee Ground Emesis, Constipation, Cramping, Diarrhea, Dyspepsia, Dysphagia, Early Satiety, Excessive Flatus, Fecal Incontinence, Heartburn, Hematemesis, Hematochezia, Loose Stools, Melena, Nausea, Odynophagia, Temesmus, Vomiting, Other - Genitourinary Genitourinary: absent: As Per HPI, Change in Urinary Stream, Difficulty Urinating, Dysuria, Flank Pain, Hematuria, Pyuria, Nocturia, Urinary Incontinence, Urinary Frequency, Urinary Hesitance, Urinary Urgency, Voiding Freq/Small Amts, Freq UTI, Hx Renal/Bladder Calculi, Hx /Renal Surgery, Bladder Distension, Other - Reproductive: Female Reproductive:Female: absent: As Per HPI, Amenorrhea, Amenorrhea/ Control, Currently Menstual, Cycle <21 Days, Cycle >35 Days, Cycle Variable, Menses 1-7 Days, Menses >/= 8 Days, Menses Variable, Cycle > 4 Weeks Between, No Menses for 6 Months, Heavy Menses, Light Menses, Normal Menses, Spotting Between Cycles , S/P Hysterectomy, Menopausal, Post Menopausal, Premenarche, Abnormal Vaginal Bleeding, Dysmenorrhea, Dyspareunia, Genital Lesions, Genital Pruritis, Pelvic Pain, Prolapse Symptoms, Sexual Dysfunction, Vaginal Discharge, Vaginal Dryness , Vaginal Odor, Vaginal Pruritis, Other - Menstruation Menstruation: absent: As Per HPI, Amenorrhea, Amenorrhea/ Control, Currently Menstual, Cycle <21 Days, Cycle >35 Days, Cycle Variable, Menses 1-7 Days, Menses >/= 8 Days, Menses Variable, Cycle > 4 Weeks Between, No Menses for 6 Months, Heavy Menses, Light Menses, Normal Menses, Spotting Between Cycles , S/P Hysterectomy, Menopausal, Post Menopausal, Premenarche, Abnormal Vaginal Bleeding, Dysmenorrhea, Other - Musculoskeletal Musculoskeletal: As Per HPI - Integumentary Integumentary: As Per HPI, Skin Pain, Wounds - Neurological Neurological: absent: As Per HPI, Abnormal Gait, Abnormal Hearing, Abnormal Movements, Abnormal Speech, Behavioral Changes, Burning Sensations, Confusion, Convulsions, Disequilibrium, Dizziness, Numbness, Focal Weakness, Frequent Falls , Headaches, Lack of Coordination, Loss of Vision, Memory Loss, Paresthesias, Radicular Pain, Restless Legs, Sensory Deficit, Syncope, Tingling, Tremor, Vertigo, Weakness, Other Visual Disturbances, Other - Psychiatric Psychiatric: absent: As Per HPI, Abnormal Sleep Pattern, Anhedonia, Anxiety, Auditory Hallucinations, Behavioral Changes, Change in Appetite, Change in Libido, Confusion, Depression, Difficulty Concentrating, Hallucinations, Homicidal Ideation, Hopelessness, Irritability, Memory Loss, Mood Swings, Panic Attacks, Paranoia, Suicidal Ideation, Visual Hallucinations, Tactile Hallucinations, Other - Endocrine Endocrine: absent: As Per HPI, Change in Body Appearance, Change in Libido, Cold Intolorance, Deepening of Voice, Excessive Sweating, Fatigue, Flushing, Heat Intolorance, Increase in Ring/Shoe/Hat Size, Palpitations, Polydipsia, Polyphagia, Polyuria, Other - Hematologic/Lymphatic Hematologic: absent: As Per HPI, Easy Bleeding, Easy Bruising, Lymphadenopathy, Other Past Patient History - Infectious Disease Hx of Infectious Diseases: None - Tetanus Immunizations Tetanus Immunization: >10 years Ago - Past Medical History & Family History Past Medical History?: Yes - Past Social History Smoking Status: Never Smoked Chewing Tobacco Use: No Cigar Use: No Occupation: unemployed Alcohol: None Drugs: Denies Home Situation {Lives}: Homeless - CARDIAC Hx Hypertension: Yes - MUSCULOSKELETAL/RHEUMATOLOGICAL Hx Falls: No - PSYCHIATRIC Hx Substance Use: No - SURGICAL HISTORY Hx Surgeries: No - ANESTHESIA Hx Anesthesia: No Hx Anesthesia Reactions: No Meds Allergies/Adverse Reactions: Allergies Allergy/AdvReac Type Severity Reaction Status Date / Time No Known Allergies Allergy Verified 02/27/18 08:40 - Medications Medications: Current Medications Acetaminophen (Tylenol 325mg Tab) 650 mg PO Q6 PRN PRN Reason: Pain, Mild (1-3) Amlodipine Besylate (Norvasc) 10 mg PO DAILY [facility] Last Admin: 03/01/18 10:30 Dose: 10 mg Heparin Sodium (Porcine) (Heparin) 5,000 units SC Q8 [facility] Last Admin: 03/01/18 14:34 Dose: 5,000 units Vancomycin/Sodium Chloride (Vancomycin 1 Gm/Ns 200 Ml) 1 gm in 200 mls @ 166.6 mls/hr IVPB Q12H [facility] PRN Reason: Protocol Stop: 03/04/18 16:31 Last Admin: 03/01/18 17:00 Dose: 166.6 mls/hr Sodium Chloride (Sodium Chloride 0.9%) 1,000 mls @ 75 mls/hr IV .[id number] [facility] Last Admin: 03/01/18 14:34 Dose: Not Given Pneumococcal Polyvalent Vaccine (Pneumovax 23 Vaccine) 0.5 ml IM .ONCE ONE Stop: 03/02/18 10:01 Saccharomyces Boulardii (Florastor) 250 mg PO BID [facility] Last Admin: 03/01/18 17:34 Dose: 250 mg Physical Exam - Constitutional Appears: Non-toxic, Chronically Ill - Head Exam Head Exam: NORMOCEPHALIC - Eye Exam Eye Exam: PERRL. absent: Scleral icterus - ENT Exam ENT Exam: Mucous Membranes Dry - Neck Exam Neck exam: Negative for: Lymphadenopathy - Respiratory Exam Respiratory Exam: Decreased Breath Sounds, Clear to Auscultation Bilateral - Cardiovascular Exam Cardiovascular Exam: REGULAR RHYTHM, +S1, +S2 - GI/Abdominal Exam GI & Abdominal Exam: Diminished Bowel Sounds, Soft. absent: Tenderness - Rectal Exam Rectal Exam: Deferred - Exam Exam: NORMAL INSPECTION - Extremities Exam Extremities exam: Positive for: calf tenderness, pedal edema, tenderness, pedal pulses present Additional comments: has a large wound draining pus on medial aspect left ankle with swelling and erythema of lower leg - Back Exam Back exam: absent: CVA tenderness (L), CVA tenderness (R) - Neurological Exam Neurological exam: Alert, CN II-XII Intact, Oriented x3, Reflexes Normal - Psychiatric Exam Psychiatric exam: Normal Mood - Skin Skin Exam: Dry, Intact Results - Vital Signs Recent Vital Signs: Last Vital Signs Temp 98.1 F 03/01/18 16:00 Pulse 92 H 03/01/18 16:00 Resp 20 03/01/18 16:00 BP 137/79 03/01/18 16:00 Pulse Ox 100 08/04/18 16:00 - Labs Result Diagrams: 03/01/18 07:20 03/01/18 07:20 Labs: Laboratory Results - last 24 hr 03/01/18 03/01/18 03/01/18 07:20 07:20 17:16 WBC 2.5 L RBC 3.35 L Hgb 8.8 L Hct 26.5 L MCV 79.0 L MCH 26.3 L MCHC 33.3 RDW 15.6 H Plt Count 312 MPV 7.8 Neut % (Auto) 29.4 L Lymph % (Auto) 50.4 H [place] % (Auto) 15.9 H Eos % (Auto) 3.7 Baso % (Auto) 0.6 Neut # (Auto) 0.7 L Lymph # (Auto) 1.2 [place] # (Auto) 0.4 Eos # (Auto) 0.1 Baso # (Auto) 0.0 Sodium 141 Potassium 3.8 Chloride 107 Carbon Dioxide 25 Anion Gap 14 BUN 7 Creatinine 0.6 L Est GFR ( Amer) > 60 Est GFR (Non-Af Amer) > 60 Random Glucose 93 Calcium 9.7 Phosphorus 3.1 Magnesium 1.9 Total Bilirubin < 0.1 L AST 15 ALT 12 Alkaline Phosphatase 74 Total Protein 6.8 Albumin 3.2 L Globulin 3.6 Albumin/Globulin Ratio 0.9 L Vancomycin Trough 10.0 Assessment & Plan (1) MRSA (methicillin resistant Staphylococcus aureus) infection Status: Acute (2) Cellulitis of leg Status: Acute (3) HTN (hypertension) Status: Acute (4) UTI (urinary tract infection) Status: Acute - Assessment and Plan (Free Text) Assessment: severe left leg wound with abscess in need of drainage culture + MRSA cont wound care podiatry on board IV [place] in progress
[2018-03-02] MEDS: Sodium Chloride 0.9% 1,000 ML IV SCH ×2 (01:46→04:04)
--- NOTE | 2018-03-02 04:14 | CP.PCM.PN ---
<Jessica Ladd - Last Filed: 03/02/18 04:20> Subjective - Date & Time of Evaluation Date of Evaluation: 03/02/18 Time of Evaluation: 04:11 - Subjective Subjective: Pt seen and examined at bedside. No acute events and no complaints. Patient admits that pain is improving and she has been doing exercises and ambulating when possible. Pt denies chest pain, SOB, abdominal pain, changes to bowel habits Objective - Vital Signs/Intake and Output Vital Signs (last 24 hours): Temp Pulse Resp BP Pulse Ox 98.4 F 90 20 164/80 H 100 03/01/18 23:40 03/01/18 23:40 03/01/18 23:40 03/02/18 04:00 03/01/18 23:40 Intake and Output: 03/01/18 03/02/18 18:59 06:59 Intake Total 900 Balance 900 - Medications Medications: Current Medications Acetaminophen (Tylenol 325mg Tab) 650 mg PO Q6 PRN PRN Reason: Pain, Mild (1-3) Amlodipine Besylate (Norvasc) 10 mg PO DAILY [facility] Last Admin: 03/01/18 10:30 Dose: 10 mg Heparin Sodium (Porcine) (Heparin) 5,000 units SC Q8 [facility] Last Admin: 03/01/18 21:52 Dose: 5,000 units Sodium Chloride (Sodium Chloride 0.9%) 1,000 mls @ 75 mls/hr IV .[id number] [facility] Last Admin: 03/02/18 04:04 Dose: 75 mls/hr Vancomycin HCl 1,500 mg/ (Sodium Chloride) 500 mls @ 166.6 mls/hr IVPB Q12H [facility] PRN Reason: Protocol Last Admin: 03/02/18 04:00 Dose: 166.6 mls/hr Pneumococcal Polyvalent Vaccine (Pneumovax 23 Vaccine) 0.5 ml IM .ONCE ONE Stop: 03/02/18 10:01 Saccharomyces Boulardii (Florastor) 250 mg PO BID [facility] Last Admin: 03/01/18 17:34 Dose: 250 mg - Labs Labs: 03/01/18 07:20 03/01/18 07:20 PT 13.7 SECONDS (9.7-12.2) H 02/27/18 10:05 INR 1.3 02/27/18 10:05 APTT 28 SECONDS (21-34) 02/27/18 10:05 - Constitutional Appears: Well, Non-toxic, No Acute Distress - Head Exam Head Exam: ATRAUMATIC, NORMAL INSPECTION, NORMOCEPHALIC - Eye Exam Eye Exam: EOMI, Normal appearance - ENT Exam ENT Exam: Mucous Membranes Moist, Normal Exam - Neck Exam Neck Exam: Normal Inspection - Respiratory Exam Respiratory Exam: Clear to Ausculation Bilateral, NORMAL BREATHING PATTERN. absent: Rhonchi, Wheezes - Cardiovascular Exam Cardiovascular Exam: REGULAR RHYTHM, +S1, +S2 - GI/Abdominal Exam GI & Abdominal Exam: Soft, Normal Bowel Sounds - Extremities Exam Extremities Exam: Pedal Edema (LLE newly wrapped, edema surrounding bandage.). absent: Calf Tenderness, Tenderness - Neurological Exam Neurological Exam: Alert, Awake, Oriented x3 - Psychiatric Exam Psychiatric exam: Normal Affect - Skin Skin Exam: Dry, Normal Color, Warm Assessment and Plan - Assessment and Plan (Free Text) Assessment: 72 yo F w/ PMHx of HTN admitted w/ left leg cellulitis and abscess 2/2 trauma 1. Cellulitis/abscess 2/2 trauma -LE doppler negative -wound cx grew MRSA -contact precautions -ancef 1g q8 -vanco 1.5g q12, increased from 1 due to subtherapeutic trough level -vanco trough 03/03 @ 16:00 -Florastor -podiatry consult Dr. Hawkins 2. HTN, chronic -Norvasc 10mg -HH diet 3. r/o endocarditis -echo ordered Ppx -heparin 5000 q8 <Noel Kam H - Last Filed: 03/02/18 11:57> Objective - Vital Signs/Intake and Output Vital Signs (last 24 hours): Temp Pulse Resp BP Pulse Ox 98.5 F 80 20 136/82 100 03/02/18 08:00 03/02/18 08:00 03/02/18 08:00 03/02/18 08:00 03/02/18 08:00 Intake and Output: 03/02/18 03/02/18 06:59 18:59 Intake Total 840 Balance 840 - Medications Medications: Current Medications Acetaminophen (Tylenol 325mg Tab) 650 mg PO Q6 PRN PRN Reason: Pain, Mild (1-3) Amlodipine Besylate (Norvasc) 10 mg PO DAILY [facility] Last Admin: 03/02/18 09:41 Dose: 10 mg Heparin Sodium (Porcine) (Heparin) 5,000 units SC Q8 [facility] Last Admin: 03/02/18 05:58 Dose: 5,000 units Vancomycin HCl 1,500 mg/ (Sodium Chloride) 500 mls @ 166.6 mls/hr IVPB Q12H [facility] PRN Reason: Protocol Last Admin: 03/02/18 04:00 Dose: 166.6 mls/hr Saccharomyces Boulardii (Florastor) 250 mg PO BID [facility] Last Admin: 03/02/18 09:42 Dose: 250 mg - Labs Labs: 03/02/18 08:01 03/02/18 08:01 PT 13.7 SECONDS (9.7-12.2) H 02/27/18 10:05 INR 1.3 02/27/18 10:05 APTT 28 SECONDS (21-34) 02/27/18 10:05 Attending/Attestation - Attestation I have personally seen and examined this patient.: Yes I have fully participated in the care of the patient.: Yes I have reviewed all pertinent clinical information, including history, physical exam and plan: Yes Notes (Text): 03/02/18 11:55 Medical attending: Patient was seen and examined by me. Agree with the above note by the resident The patient was not in any acute distress when I came and saw her. She was doing better she said. The extremity was less painful and she could now walk about the hallway without signifigant pain. She denied fevers, denied chills. Negative for DVT and also imaging did not suggest infection in the bones. MRSA + from culture and will continue with IV vancomycin. thank you Noel Kam
[2018-03-02 08:13] LABS: BASO % 1.1 % (0.0-2.0); EOS # 0.1 K/uL (0.0-0.7); EOS % 4.5 % (0.0-4.0); HEMOGLOBIN 9.3 g/dL (11.0-16.0); LYMPH # 1.2 K/uL (1.0-4.3); LYMPH % 50.5 % (20.0-40.0); MEAN CELL VOLUME 79.7 fL (81.0-99.0); MEAN CORPUSCULAR HEMOGLOBIN 26.2 pg (27.0-31.0); MEAN CORPUSCULAR HGB CONC 32.8 g/dL (33.0-37.0); MEAN PLATELET VOLUME 8.4 fL (7.2-11.7); MONO # 0.4 K/uL (0.0-0.8); MONO % 15.9 % (0.0-10.0); NEUT # 0.7 K/uL (1.8-7.0); NRBC % 0.1 % (0.0-2.0); RBC 3.56 Mil/uL (3.80-5.20); WHITE BLOOD COUNT 2.5 K/uL (4.8-10.8)
[2018-03-02 08:41] LABS: IRON 48 ug/dL (37-170)
[2018-03-02 08:52] LABS: % IRON SATURATION 17 (20-55); TOTAL IRON BINDING CAPACITY 288 ug/dL (250-450)
[2018-03-02 08:54] LABS: ALB/GLOB RATIO 0.9 (1.0-2.1); ALBUMIN 3.5 g/dL (3.5-5.0); ALT/SGPT 17 U/L (9-52); AST/SGOT 41 U/L (14-36); BLOOD UREA NITROGEN 7 mg/dL (7-17); CALCIUM 10.1 mg/dl (8.6-10.4); GFR AFRICAN-AMERICAN > 60; GFR NON-AFRICAN AMERICAN > 60
[2018-03-02 09:10] LABS: HEPATITIS B SURFACE AG Negative (NEGATIVE)
[2018-03-02 09:16] LABS: HEPATITIS A IGM NEGATIVE (NEGATIVE); HEPATITIS B CORE AB NEGATIVE (NEGATIVE)
[2018-03-02 09:26] LABS: FERRITIN 79.6 ng/mL
[2018-03-02 09:28] LABS: HEPATITIS C ANTIBODY NEGATIVE (NEGATIVE)
[2018-03-02] MEDS: Saccharomyces Boulardi 250 mg Cap PO SCH ×2 (09:42→17:24)
[2018-03-02] MEDS ORDERED: Pneumococcal 23-Valent Vaccine IM ONE (10:00)
--- NOTE | 2018-03-02 14:05 | CP.PCM.PN ---
Subjective - Date & Time of Evaluation Date of Evaluation: 03/02/18 Time of Evaluation: 14:03 - Subjective Subjective: Podiatry progress note for Dr. Hawkins 72 y/o homeless female seen at bedside today for management of left ankle blister. Pt states she is in no pain today. States she resides at the [facility]. States she has been walking to and from the bathroom and around the hallways to try and get some exercise. States she noticed the leg and foot swelling over the last two days and this prompted her to come to the hospital. Denies F/C/N/V/CP/SOB. Denies numbness, tingling or burning Objective - Vital Signs/Intake and Output Vital Signs (last 24 hours): Temp Pulse Resp BP Pulse Ox 98.5 F 80 20 136/82 100 03/02/18 08:00 03/02/18 08:00 03/02/18 08:00 03/02/18 08:00 03/02/18 08:00 Intake and Output: 03/02/18 03/02/18 06:59 18:59 Intake Total 840 300 Balance 840 300 - Medications Medications: Current Medications Acetaminophen (Tylenol 325mg Tab) 650 mg PO Q6 PRN PRN Reason: Pain, Mild (1-3) Amlodipine Besylate (Norvasc) 10 mg PO DAILY [facility] Last Admin: 03/02/18 09:41 Dose: 10 mg Heparin Sodium (Porcine) (Heparin) 5,000 units SC Q8 [facility] Last Admin: 03/02/18 13:18 Dose: 5,000 units Vancomycin HCl 1,500 mg/ (Sodium Chloride) 500 mls @ 166.6 mls/hr IVPB Q12H [facility] PRN Reason: Protocol Last Admin: 03/02/18 04:00 Dose: 166.6 mls/hr Saccharomyces Boulardii (Florastor) 250 mg PO BID [facility] Last Admin: 03/02/18 09:42 Dose: 250 mg - Labs Labs: 03/02/18 08:01 03/02/18 08:01 PT 13.7 SECONDS (9.7-12.2) H 02/27/18 10:05 INR 1.3 02/27/18 10:05 APTT 28 SECONDS (21-34) 02/27/18 10:05 - Constitutional Appears: Well, Non-toxic, No Acute Distress - Head Exam Head Exam: ATRAUMATIC, NORMOCEPHALIC - Extremities Exam Additional comments: Vasc: DP/PT pulses palpable 2/4. Temperature gradient warm to cool. CFT < 3 sec to all digits. Perimalleolar edema noted to LLE, non-pitting. Derm: Circular ulceration approx 2.1cm diameter and 0.2cm in depth noted to left posteromedial ankle with 85% granular and 15% fibrotic wound base. Chalino wound negative for erythema or maceration. No malodor, no fluctuance, no purulence or active drainage. Thickened, dystrophic elongated toenails x 10 Neuro: Protective sensation grossly intact Ortho: No gross biomechanical abnormalities. Mild tenderness to palpation of thickened toenails B/L. Mild tenderness to palpation of ulceration site and chalino -wound edema - Neurological Exam Neurological Exam: Alert, Awake, Oriented x3 - Psychiatric Exam Psychiatric exam: Normal Affect, Normal Mood Assessment and Plan - Assessment and Plan (Free Text) Assessment: 72 y/o female with left posteromedial ankle ulcer secondary to lanced boil/traum Plan: Pt seen and evaluated at bedside Discussed with attending Dr. Hawkins Tib/fib x-rays negative for any acute osseous findings Wound cleaned with saline and dressed with betadine, ABD, DSD MRSA grown on wound culture Blood culture shows no growth after three days preliminary read Pt advised to keep dressing clean, dry and intact Continue IV abx treatment Podiatry will continue to monitor pt while in house
--- NOTE | 2018-03-03 07:01 | CP.PCM.PN ---
Subjective - Date & Time of Evaluation Date of Evaluation: 03/03/18 - Subjective Subjective: PGY-1 Faiza Mcpherson D.O. Medicine progress note for Dr. Nye service: Discussed with pt need for PICC line and IV abx for the next 7 days. Objective - Vital Signs/Intake and Output Vital Signs (last 24 hours): Temp Pulse Resp BP Pulse Ox 98.4 F 79 20 152/87 H 100 03/03/18 00:00 03/03/18 00:00 03/03/18 00:00 03/03/18 00:00 03/03/18 00:00 Intake and Output: 03/03/18 03/03/18 06:59 18:59 Intake Total 1540 Balance 1540 - Medications Medications: Current Medications Acetaminophen (Tylenol 325mg Tab) 650 mg PO Q6 PRN PRN Reason: Pain, Mild (1-3) Amlodipine Besylate (Norvasc) 10 mg PO DAILY [facility] Last Admin: 03/02/18 09:41 Dose: 10 mg Heparin Sodium (Porcine) (Heparin) 5,000 units SC Q8 [facility] Last Admin: 03/03/18 05:45 Dose: 5,000 units Vancomycin HCl 1,500 mg/ (Sodium Chloride) 500 mls @ 166.6 mls/hr IVPB Q12H [facility] PRN Reason: Protocol Last Admin: 03/03/18 03:37 Dose: 166.6 mls/hr Saccharomyces Boulardii (Florastor) 250 mg PO BID [facility] Last Admin: 03/02/18 17:24 Dose: 250 mg - Labs Labs: 03/02/18 08:01 03/02/18 08:01 PT 13.7 SECONDS (9.7-12.2) H 02/27/18 10:05 INR 1.3 02/27/18 10:05 APTT 28 SECONDS (21-34) 02/27/18 10:05
[2018-03-03 08:12] LABS: BASO % 0.6 % (0.0-2.0); EOS # 0.1 K/uL (0.0-0.7); EOS % 4.3 % (0.0-4.0); HEMOGLOBIN 8.8 g/dL (11.0-16.0); LYMPH % 51.9 % (20.0-40.0); MEAN CELL VOLUME 80.6 fL (81.0-99.0); MEAN CORPUSCULAR HEMOGLOBIN 26.9 pg (27.0-31.0); MEAN CORPUSCULAR HGB CONC 33.4 g/dL (33.0-37.0); MEAN PLATELET VOLUME 7.9 fL (7.2-11.7); MONO # 0.3 K/uL (0.0-0.8); MONO % 17.6 % (0.0-10.0); NEUT # 0.5 K/uL (1.8-7.0); NEUT % 25.6 % (50.0-75.0); NRBC % 0.2 % (0.0-2.0); RBC 3.29 Mil/uL (3.80-5.20); RED CELL DISTRIBUTION WIDTH 16.1 % (11.5-14.5)
[2018-03-03 08:24] LABS: ALB/GLOB RATIO 0.9 (1.0-2.1); ALBUMIN 3.2 g/dL (3.5-5.0); ALT/SGPT 17 U/L (9-52); AST/SGOT 21 U/L (14-36); BLOOD UREA NITROGEN 8 mg/dL (7-17); CALCIUM 9.8 mg/dl (8.6-10.4); GFR AFRICAN-AMERICAN > 60; GFR NON-AFRICAN AMERICAN > 60
[2018-03-03] MEDS: Saccharomyces Boulardi 250 mg Cap PO SCH (09:58)
--- NOTE | 2018-03-03 10:43 | CP.PCM.PN ---
Subjective - Date & Time of Evaluation Date of Evaluation: 03/03/18 Time of Evaluation: 09:00 - Subjective Subjective: seen on rounds left leg remains swollen less red denies fever Objective - Vital Signs/Intake and Output Vital Signs (last 24 hours): Temp Pulse Resp BP Pulse Ox 98.6 F 80 20 132/78 98 03/03/18 07:51 03/03/18 07:51 03/03/18 07:51 03/03/18 07:51 03/03/18 07:51 Intake and Output: 03/03/18 03/03/18 06:59 18:59 Intake Total 1540 Balance 1540 - Medications Medications: Current Medications Acetaminophen (Tylenol 325mg Tab) 650 mg PO Q6 PRN PRN Reason: Pain, Mild (1-3) Amlodipine Besylate (Norvasc) 10 mg PO DAILY [facility] Last Admin: 03/03/18 09:58 Dose: 10 mg Heparin Sodium (Porcine) (Heparin) 5,000 units SC Q8 [facility] Last Admin: 03/03/18 05:45 Dose: 5,000 units Vancomycin HCl 1,500 mg/ (Sodium Chloride) 500 mls @ 166.6 mls/hr IVPB Q12H [facility] PRN Reason: Protocol Last Admin: 03/03/18 03:37 Dose: 166.6 mls/hr Saccharomyces Boulardii (Florastor) 250 mg PO BID [facility] Last Admin: 03/03/18 09:58 Dose: 250 mg - Labs Labs: 03/03/18 07:42 03/03/18 07:42 PT 13.7 SECONDS (9.7-12.2) H 02/27/18 10:05 INR 1.3 02/27/18 10:05 APTT 28 SECONDS (21-34) 02/27/18 10:05 - Constitutional Appears: Non-toxic, Chronically Ill - Head Exam Head Exam: NORMOCEPHALIC - Eye Exam Eye Exam: PERRL - ENT Exam ENT Exam: Mucous Membranes Dry - Neck Exam Neck Exam: absent: Lymphadenopathy - Respiratory Exam Respiratory Exam: Decreased Breath Sounds - Cardiovascular Exam Cardiovascular Exam: REGULAR RHYTHM - GI/Abdominal Exam GI & Abdominal Exam: Distended, Soft - Rectal Exam Rectal Exam: Deferred - Exam Exam: NORMAL INSPECTION - Extremities Exam Extremities Exam: Pedal Edema, Tenderness. absent: Calf Tenderness - Back Exam Back Exam: absent: CVA tenderness (L), CVA tenderness (R) Assessment and Plan (1) MRSA (methicillin resistant Staphylococcus aureus) infection Status: Acute (2) Cellulitis of leg Status: Acute (3) HTN (hypertension) Status: Acute (4) UTI (urinary tract infection) Status: Acute - Assessment and Plan (Free Text) Assessment: MRSA abscess/ cellulitis left leg improving with elevation wound care and IV antibiotics
--- NOTE | 2018-03-03 11:20 | CP.PCM.PN ---
Subjective - Date & Time of Evaluation Date of Evaluation: 03/03/18 Time of Evaluation: 11:20 - Subjective Subjective: Podiatry progress note - Dr. Hawkins 72 y/o homeless female seen at bedside this morning with attending Dr. Hawkins regarding ruptured left ankle boil. Denies pain to the left ankle wound. Denies F/C/N/V/CP/SOB. Denies numbness, tingling or burning Objective - Vital Signs/Intake and Output Vital Signs (last 24 hours): Temp Pulse Resp BP Pulse Ox 98.6 F 80 20 132/78 98 03/03/18 07:51 03/03/18 07:51 03/03/18 07:51 03/03/18 07:51 03/03/18 07:51 Intake and Output: 03/03/18 03/03/18 06:59 18:59 Intake Total 1540 Balance 1540 - Medications Medications: Current Medications Acetaminophen (Tylenol 325mg Tab) 650 mg PO Q6 PRN PRN Reason: Pain, Mild (1-3) Amlodipine Besylate (Norvasc) 10 mg PO DAILY [facility] Last Admin: 03/03/18 09:58 Dose: 10 mg Heparin Sodium (Porcine) (Heparin) 5,000 units SC Q8 [facility] Last Admin: 03/03/18 05:45 Dose: 5,000 units Vancomycin HCl 1,500 mg/ (Sodium Chloride) 500 mls @ 166.6 mls/hr IVPB Q12H [facility] PRN Reason: Protocol Last Admin: 03/03/18 03:37 Dose: 166.6 mls/hr Saccharomyces Boulardii (Florastor) 250 mg PO BID [facility] Last Admin: 03/03/18 09:58 Dose: 250 mg - Labs Labs: 03/03/18 07:42 03/03/18 07:42 PT 13.7 SECONDS (9.7-12.2) H 02/27/18 10:05 INR 1.3 02/27/18 10:05 APTT 28 SECONDS (21-34) 02/27/18 10:05 - Constitutional Appears: Well, Non-toxic, No Acute Distress - Extremities Exam Additional comments: Vasc: DP/PT pulses palpable 2/4. Temperature gradient warm to cool. CFT < 3 sec to all digits. Perimalleolar edema noted to LLE, non-pitting. Derm: Circular ulceration approx 1.7cm diameter and 0.2cm in depth noted to left posteromedial ankle with 85% granular and 15% fibrotic wound base. Chalino wound negative for erythema or maceration. No malodor, no fluctuance, no purulence or active drainage. Thickened, dystrophic elongated toenails x 10 Neuro: Protective sensation grossly intact Ortho: No gross biomechanical abnormalities. Mild tenderness to palpation of thickened toenails B/L. Mild tenderness to palpation of ulceration site and chalino -wound nii - Neurological Exam Neurological Exam: Alert, Awake, Oriented x3 - Psychiatric Exam Psychiatric exam: Normal Affect, Normal Mood Assessment and Plan - Assessment and Plan (Free Text) Assessment: 72 y/o female with left posteromedial ankle ulcer secondary to lanced boil/ trauma Plan: Pt seen and evaluated at bedsidewith attending Dr. Hawkins Wound cleaned with saline and dressed with betadine, ABD, DSD MRSA grown on wound culture, pt on contact precautions Blood culture shows no growth after three days preliminary read Pt advised to keep dressing clean, dry and intact Continue IV abx treatment Pt stable for discharge at this time, to follow up with Dr. Hawikns in [facility] or Dr. Hawkins's office Podiatry will continue to monitor pt while in house
--- NOTE | 2018-03-03 14:21 | RAD ---
Date of service: 03/03/2018 HISTORY: verify right PICC COMPARISON: Comparison chest 02/27/2018 FINDINGS: Interval placement right-sided PICC line with tip in the SVC. LUNGS: Minor bibasilar atelectasis left greater than right. PLEURA: No significant pleural effusion identified, no pneumothorax apparent. CARDIOVASCULAR: Heart remains enlarged. OSSEOUS STRUCTURES: No significant abnormalities. VISUALIZED UPPER ABDOMEN: Normal. OTHER FINDINGS: None. IMPRESSION: Interval placement right-sided PICC line as described. Mild bibasilar atelectasis left greater than right
[2018-03-03 16:36] VITALS: BP 157/90; PULSE 87; TEMP 97.7; O2SAT 99
--- NOTE | 2018-03-03 19:30 | CP.PCM.DIS ---
Provider - Provider Date of Admission: 02/27/18 12:11 Attending physician: Piyush Mahoney MD Primary care physician: none Consults: ID (Sumanth), podiatry (Shruthi), wound care Time Spent in preparation of Discharge (in minutes): 45 Diagnosis - Discharge Diagnosis (1) MRSA (methicillin resistant Staphylococcus aureus) infection Status: Acute Priority: High (2) HTN (hypertension) Status: Chronic Priority: Low Hospital Course - Lab Results Lab Results: Micro Results 02/28/18 17:19 Blood Blood Culture - Preliminary NO GROWTH AFTER 3 DAYS 02/27/18 11:51 Blood Blood Culture - Preliminary NO GROWTH AFTER 4 DAYS 02/27/18 21:32 Ankle - Left Gram Stain - Final 02/27/18 21:32 Ankle - Left Wound Culture - Final Methicillin Resistant S Aureus Most Recent Lab Values WBC 2.0 K/uL (4.8-10.8) L* 03/03/18 07:42 RBC 3.29 Mil/uL (3.80-5.20) L 03/03/18 07:42 Hgb 8.8 g/dL (11.0-16.0) L 03/03/18 07:42 Hct 26.5 % (34.0-47.0) L 03/03/18 07:42 MCV 80.6 fL (81.0-99.0) L 03/03/18 07:42 MCH 26.9 pg (27.0-31.0) L 03/03/18 07:42 MCHC 33.4 g/dL (33.0-37.0) 03/03/18 07:42 RDW 16.1 % (11.5-14.5) H 03/03/18 07:42 Plt Count 334 K/uL (130-400) 03/03/18 07:42 MPV 7.9 fL (7.2-11.7) 03/03/18 07:42 Neut % (Auto) 25.6 % (50.0-75.0) L 03/03/18 07:42 Lymph % (Auto) 51.9 % (20.0-40.0) H 03/03/18 07:42 Bath % (Auto) 17.6 % (0.0-10.0) H 03/03/18 07:42 Eos % (Auto) 4.3 % (0.0-4.0) H 03/03/18 07:42 Baso % (Auto) 0.6 % (0.0-2.0) 03/03/18 07:42 Neut # (Auto) 0.5 K/uL (1.8-7.0) L 03/03/18 07:42 Lymph # (Auto) 1.0 K/uL (1.0-4.3) 03/03/18 07:42 Bath # (Auto) 0.3 K/uL (0.0-0.8) 03/03/18 07:42 Eos # (Auto) 0.1 K/uL (0.0-0.7) 03/03/18 07:42 Baso # (Auto) 0.0 K/uL (0.0-0.2) 03/03/18 07:42 PT 13.7 SECONDS (9.7-12.2) H 02/27/18 10:05 INR 1.3 02/27/18 10:05 APTT 28 SECONDS (21-34) 02/27/18 10:05 Sodium 142 mmol/L (132-148) 03/03/18 07:42 Potassium 3.9 mmol/L (3.6-5.2) 03/03/18 07:42 Chloride 107 mmol/L (98-107) 03/03/18 07:42 Carbon Dioxide 28 mmol/L (22-30) 03/03/18 07:42 Anion Gap 11 (10-20) 03/03/18 07:42 BUN 8 mg/dL (7-17) 03/03/18 07:42 Creatinine 0.7 mg/dL (0.7-1.2) 03/03/18 07:42 Est GFR ( Amer) > 60 03/03/18 07:42 Est GFR (Non-Af Amer) > 60 03/03/18 07:42 Random Glucose 91 mg/dL (65-105) 03/03/18 07:42 Calcium 9.8 mg/dl (8.6-10.4) 03/03/18 07:42 Phosphorus 3.3 mg/dL (2.5-4.5) 03/03/18 07:42 Magnesium 2.0 mg/dL (1.6-2.3) 03/03/18 07:42 Iron 48 ug/dL (37-170) 03/02/18 08:01 TIBC 288 ug/dL (250-450) 03/02/18 08:01 % Saturation 17 (20-55) L 03/02/18 08:01 Ferritin 79.6 ng/mL 03/02/18 08:01 Total Bilirubin < 0.1 mg/dL (0.2-1.3) L 03/03/18 07:42 AST 21 U/L (14-36) 03/03/18 07:42 ALT 17 U/L (9-52) 03/03/18 07:42 Alkaline Phosphatase 72 U/L (38-126) 03/03/18 07:42 Total Protein 6.7 g/dL (6.3-8.3) 03/03/18 07:42 Albumin 3.2 g/dL (3.5-5.0) L 03/03/18 07:42 Globulin 3.5 gm/dL (2.2-3.9) 03/03/18 07:42 Albumin/Globulin Ratio 0.9 (1.0-2.1) L 03/03/18 07:42 Urine Color Yellow (YELLOW) 02/27/18 10:13 Urine Clarity Clear (Clear) 02/27/18 10:13 Urine pH 6.0 (5.0-8.0) 02/27/18 10:13 Ur Specific [place] 1.010 (1.003-1.030) 02/27/18 10:13 Urine Protein Negative mg/dL (NEGATIVE) 02/27/18 10:13 Urine Glucose (UA) Normal mg/dL (Normal) 02/27/18 10:13 Urine Ketones Negative mg/dL (NEGATIVE) 02/27/18 10:13 Urine Blood Negative (NEGATIVE) 02/27/18 10:13 Urine Nitrate Negative (NEGATIVE) 02/27/18 10:13 Urine Bilirubin Negative (NEGATIVE) 02/27/18 10:13 Urine Urobilinogen Normal mg/dL (0.2-1.0) 02/27/18 10:13 Ur Leukocyte Esterase 1+ Anaya/uL (Negative) H 02/27/18 10:13 Urine WBC (Auto) 4 /hpf (0-5) 02/27/18 10:13 Urine RBC (Auto) 1 /hpf (0-3) 02/27/18 10:13 Ur Squamous Epith Cells < 1 /hpf (0-5) 02/27/18 10:13 Urine Bacteria Rare (<OCC) 02/27/18 10:13 Vancomycin Trough 13.3 ug/mL (5.0-10.0) H 03/03/18 16:50 Urine Opiates Screen Negative (NEGATIVE) 02/28/18 15:02 Urine Methadone Screen Negative (NEGATIVE) 02/28/18 15:02 Ur Barbiturates Screen Negative (NEGATIVE) 02/28/18 15:02 Ur Phencyclidine Scrn Negative (NEGATIVE) 02/28/18 15:02 Ur Amphetamines Screen Negative (NEGATIVE) 02/28/18 15:02 U Benzodiazepines Scrn Negative (NEGATIVE) 02/28/18 15:02 U Oth Cocaine Metabols Negative (NEGATIVE) 02/28/18 15:02 U Cannabinoids Screen Negative (NEGATIVE) 02/28/18 15:02 Hepatitis A IgM Ab Negative (NEGATIVE) 03/02/18 08:01 Hep Bs Antigen Negative (NEGATIVE) 03/02/18 08:01 Hep B Core IgM Ab Negative (NEGATIVE) 03/02/18 08:01 Hepatitis C Antibody Negative (NEGATIVE) 03/02/18 08:01 HIV 1&2 Antibody Screen Negative (NEGATIVE) 03/02/18 08:01 02/28/18 17:19 Blood Culture - Preliminary Blood NO GROWTH AFTER 3 DAYS 02/27/18 11:51 Blood Culture - Preliminary Blood NO GROWTH AFTER 4 DAYS 02/27/18 21:32 Gram Stain - Final Ankle - Left Wound Culture - Final Methicillin Resistant S Aureus - Hospital Course Hospital Course: Nya Mack is a 72 yo homeless female with a PMH of HTN who presents with a 2 day history of left leg swelling and new onset abscess today post trauma. The patient states that she lives in a homeless residential and walks outside for msot of the day while carrying all of her belongings. She believes she hit her leg while pushing her cart, but she cannot recall particularly what she hit it on. She states she noticed redness on her left leg some time last week. The swelling began 2 days ago. She then noticed a blistering area with pus today and decided to come into the hospital. She states there is minimal pain but describes a tight feeling. She also notes associated pruritis to the area. She denies fevers and chills. She is sleeping and eating well. She denies nausea, vomiting, constipation, and diarrhea. Upon admission, the patient had mild pain and difficulty walking. PT evaluated and worked with the patient throughout her stay. Wound care was consulted. Podiatry was consulted to see the patient, and toenails were debrided. patient received Tdap vaccine. Patient was initially started on Ancef and vancomycin. The patient's wound culture grew MRSA sensitive to vanco, and the Ancef was discontinued. The patient's blood cultures were negative >4 days. Patient remained afebrile. Venous Doppler was negative for DVT of LLE. XR did not show osteomyelitis. Patient was continued on her home dose of Norvasc, and her BP was stable throughout the hospital course. Upon discharge, the patient reported minimal pain. She was compliant with PT exercises. She had a PICC line inserted. The patient was transferred to [facility] at [facility] in [place]. She will continue on IV vancomycin for 7 more days. It was discussed with patient to follow-up with social services counselor in order to secure housing for after discharge. Discharge Exam - Head Exam Head Exam: ATRAUMATIC, NORMAL INSPECTION, NORMOCEPHALIC - Eye Exam Eye Exam: EOMI, Normal appearance - ENT Exam ENT Exam: Mucous Membranes Moist - Neck Exam Neck exam: Full Rom, Normal Inspection - Respiratory Exam Respiratory Exam: Clear to PA & Lateral, NORMAL BREATHING PATTERN. absent: Wheezes, Respiratory Distress - Cardiovascular Exam Cardiovascular Exam: REGULAR RHYTHM, +S1, +S2. absent: Diastolic murmur, Systolic Murmur - GI/Abdominal Exam GI & Abdominal Exam: Normal Bowel Sounds, Soft. absent: Mass, Tenderness - Rectal Exam Rectal Exam: Deferred - Extremities Exam Additional comments: left ankle 1x1 cm abscess with minimal purulent drainage, mild surrounding erythema (much improved from admission), mild edema of ankle, pulses present - Back Exam Back exam: NORMAL INSPECTION. absent: tenderness - Neurological Exam Neurological exam: Alert, CN II-XII Intact, Oriented x3 - Psychiatric Exam Psychiatric exam: Normal Affect, Normal Mood - Skin Skin Exam: Dry, Intact, Normal Color, Warm Discharge Plan - Follow Up Plan Condition: FAIR Disposition: REHAB FACILITY/REHAB UNIT Patient education suggested?: Yes Instructions: Cellulitis (Skin Infection), Adult (DC), MRSA (Methicillin Resistant Staphylococcus Aureus) (DC) Additional Instructions: Patient is stable for discharge to rehab as per Dr. Mahoney. Patient is being transferred to [facility] subacute rehab in [place]. She will continue on IV antibiotics (vancomycin) for the next 7 days. Discussed follow-up at the resident clinic at [facility] ([phone]). Also discussed with patient that she work with a social services counselor in order to obtain more stable housing following discharge from rehab. This was explained to the patient who understands and agrees. Referrals: Khloe Ivan MD [Staff Provider] -
--- NOTE | 2018-03-03 22:30 | CARD ---
APPROVED REPORT Date of service: 03/03/2018 EXAM: Two-dimensional and M-mode echocardiogram with Doppler and color Doppler. Other Information Quality : GoodRhythm : INDICATION Peripheral Edema Murmur RISK FACTORS Hypertension 2D DIMENSIONS IVSd1.1 (0.7-1.1cm)LVDd3.8 (3.9-5.9cm) PWd1.0 (0.7-1.1cm)LVDs2.4 (2.5-4.0cm) FS (%) 37.9 %LVEF (%)68.7 (>50%) M-Mode DIMENSIONS Left Atrium (MM)3.31 (2.5-4.0cm)IVSd1.06 (0.7-1.1cm) Aortic Root3.72 (2.2-3.7cm)LVDd4.18 (4.0-5.6cm) Aortic Cusp Exc.2.13 (1.5-2.0cm)PWd0.89 (0.7-1.1cm) LVEF (%)70 (>50%) Mitral Valve MV E Kqpcvgzk35.3cm/sMV A Oentmubg655.1cm/sE/A ratio0.7 TDI E/Lateral E'0.0E/Medial E'0.0 Tricuspid Valve TR Peak [id number]/sTR Peak Gr.[id number] LEFT VENTRICLE The left ventricle is normal size. There is normal left ventricular wall thickness. Left ventricle systolic function is normal. The Ejection Fraction is 65-70%. There is normal LV segmental wall motion. The left ventricular diastolic function is abnormal- Grade I-abnormal relaxation pattern. No left ventricle thrombus noted on this study. RIGHT VENTRICLE The right ventricle is normal size. The right ventricular systolic function is normal. ATRIA The left atrium size is normal. The right atrium size is normal. AORTIC VALVE The aortic valve is mildly sclerotic. The aortic valve is trileaflet. There is trace aortic regurgitation. There is no aortic valvular stenosis. There is no aortic valvular vegetation. MITRAL VALVE Mitral annular calcification is mild to moderate. There is no evidence of mitral valve prolapse. There is no mitral valve stenosis. Mitral regurgitation is mild. TRICUSPID VALVE The tricuspid valve is normal in structure. There is mild tricuspid regurgitation. Right ventricular systolic pressure is estimated at 30-40 mmHg. There is no pulmonary hypertension. There is no tricuspid valve prolapse or vegetation. There is no tricuspid valve stenosis. PULMONIC VALVE The pulmonic valve is not well visualized. There is trace to mild pulmonic valvular regurgitation. GREAT VESSELS There is borderline aortic root dilatation. The IVC is normal in size and collapses >50% with inspiration. PERICARDIAL EFFUSION There is no pericardial effusion. There is no pleural effusion. <Conclusion> The left ventricle is normal size. Left ventricle systolic function is normal. The Ejection Fraction is 65-70%. The left ventricular diastolic function is abnormal- Grade I-abnormal relaxation pattern. The right ventricle is normal size. The right ventricular systolic function is normal. The left atrium size is normal. The right atrium size is normal. There is trace aortic regurgitation. Mitral regurgitation is mild. There is mild tricuspid regurgitation. There is trace to mild pulmonic valvular regurgitation.
== END 2018-03-03 17:30 | DRG 603 ==
LOC: C.ER 08:37 → C.9E 12:11 → C.3T 12:30
PROVIDERS: ADMIT Internal Medicine; ATTEND Internal Medicine
PROC: 0HBRXZZ Excision of Toe Nail, External Approach (ICD-10-PCS; principal; 2018-02-28)
PROC: 0HBRXZZ Excision of Toe Nail, External Approach (ICD-10-PCS; 2018-02-28)
PROC: 0HBRXZZ Excision of Toe Nail, External Approach (ICD-10-PCS; 2018-02-28)
PROC: 0HBRXZZ Excision of Toe Nail, External Approach (ICD-10-PCS; 2018-02-28)
PROC: 0HBRXZZ Excision of Toe Nail, External Approach (ICD-10-PCS; 2018-02-28)
PROC: 0HBRXZZ Excision of Toe Nail, External Approach (ICD-10-PCS; 2018-02-28)
PROC: 0HBRXZZ Excision of Toe Nail, External Approach (ICD-10-PCS; 2018-02-28)
PROC: 0HBRXZZ Excision of Toe Nail, External Approach (ICD-10-PCS; 2018-02-28)
PROC: 0HBRXZZ Excision of Toe Nail, External Approach (ICD-10-PCS; 2018-02-28)
PROC: 0HBRXZZ Excision of Toe Nail, External Approach (ICD-10-PCS; 2018-02-28)
DX: L03.116 Cellulitis of left lower limb (principal); L97.329 Non-pressure chronic ulcer of left ankle with unspecified severity; L02.91 Cutaneous abscess, unspecified; N39.0 Urinary tract infection, site not specified; I10 Essential (primary) hypertension; B95.62 Methicillin resistant Staphylococcus aureus infection as the cause of diseases classified elsewhere; L02.426 Furuncle of left lower limb; L29.9 Pruritus, unspecified; Z59.0 Homelessness; Z80.0 Family history of malignant neoplasm of digestive organs; S91.012A Laceration without foreign body, left ankle, initial encounter; W22.8XXA Striking against or struck by other objects, initial encounter; L60.3 Nail dystrophy; D50.9 Iron deficiency anemia, unspecified